=== PATIENT | female | born 1950 | race Caucasian/White ===

== ENCOUNTER 2018-07-31 11:30 | Inpatient (IN) | payer MEDICARE, OTHER ==
--- NOTE | 2018-07-13 07:29 | HP ---
HISTORY AND PHYSICAL: DATE OF ADMISSION/SURGERY: 07/31/18 SURGEON: Darlin Guerrero MD.* (DICTATED BY EDA JACKSON) PROCEDURE: Left total hip arthroplasty. DATE OF OFFICE VISIT: 07/11/18 CHIEF COMPLAINT: Left hip pain. HISTORY OF PRESENT ILLNESS: Ms. Mclean is a 67-year-old female with continued complaints of left hip pain. She has failed conservative treatment and elected to proceed with a left total hip arthroplasty. PAST MEDICAL HISTORY: Osteopenia, depression, and GERD. PAST SURGICAL HISTORY: Tonsillectomy, , hysterectomy. CURRENT MEDICATIONS: 1. Meloxicam 15 mg daily. 2. Lexapro 10 mg daily. 3. Multivitamin. 4. Omeprazole 20 mg twice a day. 5. AREDS 2. 6. sodium once a month. ALLERGIES: No known drug allergies. FAMILY HISTORY: Cancer, coronary artery disease, and stroke. SOCIAL HISTORY: She is a 67-year-old female. She lives with her . She does not smoke or use drugs. She uses occasional alcohol. REVIEW OF SYSTEMS: A complete 14-point review of systems reviewed with the patient, was positive for GERD. She denies history of DVT, PE, hepatitis, HIV, or anesthesia problems. PHYSICAL EXAMINATION GENERAL: She is well developed, well nourished, in no acute distress. VITAL SIGNS: She stands 5 feet 3 inches tall, weighs 178 pounds. Her blood pressure is 116/76, heart rate is 64. HEENT: Normocephalic, atraumatic. NECK: Supple. No palpable lymph nodes. PULMONARY: Lungs are clear to auscultation bilaterally. CARDIO: Regular rate and rhythm. Strong S1, S2. ABDOMEN: Soft, nontender, nondistended. NEUROLOGICAL: She is alert and oriented x3. MUSCULOSKELETAL: Left lower extremity, the skin is intact. There are no open wounds or abrasions. She walks with an antalgic type gait, favoring her left hip. She has decreased internal and external rotation of the left hip. She has 2+ dorsalis pedis pulses, intact sensation and her lower extremity muscle group strengths are intact at 5/5. ASSESSMENT AND PLAN: Ms. Mclean is a 67-year-old female with continued complains of left hip pain secondary to end-stage osteoarthritis. She has failed conservative treatment and elected to proceed with a left total hip arthroplasty. The surgery is scheduled for 07/31/[address] Guerrero discussed the risks and benefits of the surgery at today's visit and all of her questions were answered. She will follow up with Dr. Guerrero 2 weeks after the surgery. EDA JACKSON [id number]/[facility] #: [id number] LD
[~2018-07-31 11:30] MED LIST: Acetaminophen IV 1GM/100ML * 1,000 MG/100 ML VIAL IVPB ONE; Buffered Lidocaine 0.9% SYRIN* 5 ML/SYR SYRINGE INTRADERM ONE; Dexamethasone IV* 4 MG/ML 1 ML (4 MG) IV SLOW PU ONE; Famotidine IV* 10 MG/ML 2 ML (20 mg) IV ONE; Gabapentin CAP(*) 300 MG PO ONE; Lactated Ringers 1000 ML Bag* 1,000 ML IV SCH; celeCOXIB CAP* 200 MG PO ONE
--- OUTSIDE RECORDS SUMMARY | 2018-07-31 11:33 | XMS REPORT | Continuity of Care Document ---
:1950 External Reference #:[id number] Author Name Betsy Fleming Care Team Providers Name Role Phone Aguila Gusman MD Care Team Information Armed Custom Protection Officer Unavailable Ishan Dumont MD Primary Care Physician Unavailable Payers Type Date Identification Numbers Payment Provider Subscriber Policy Number: [id number] Medicare Kelsey Mclean PayID: [id number] [address] [place] [address] Policy Number: [id number] [facility] Kelsey Mclean Group Number: [address] PayID: [id number] [place] [address] Advance Directives Description No Information Available Problems Date Description Provider Status Onset: 03/16/2018 Localized, primary osteoarthritis of the Darlinkavya Guerrero M.D. 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 ETOH Use Drinks 3 Alcoholic Beverages Per Week Tobacco Use Start: Unknown End: Patient is a former smoker Unknown Smoking Status Reviewed: 07/13/18 Patient is a former smoker Exercise Type/Frequency Exercises regularly Allergies, Adverse Reactions, Alerts Description No Known Drug Allergies Medications Medication Date Status Form Strength Qnty SIG Indications Ordering Provider Meloxicam Active Tablets 15mg 30tabs take 1 tab M25.552 Dalrin 018 by mouth Cesar, with food M.DUziel once a day Lexapro 0 Active Tablets 10mg 1 by mouth Unknown 000 every day Multi Vitamin Active Tablets 1 by mouth Unknown Daily 000 every day Omeprazole Active 20mg bid Unknown 000 Risedronate Active Unknown Sodium 000 Preservision Active Unknown Areds 2 000 Naproxen Sodium Hx Tablets 220mg 1 tab as Unknown 000 - needed 018 Bone Pill Hx Once Unknown 000 - Monthly 018 Medications Administered in Office Medication Date Status Form Strength Qnty SIG Indications Ordering Provider Depomedrol Administered Injection Darlin 40MG 018 Nat Guerrero Immunizations Description No Information Available Vital Signs Date Vital Result Comment 07/13/2018 3:12pm Height 63 inches 5'3" Weight 177.00 lb Heart Rate 68 /min BP Systolic 132 mmHg BP Diastolic 80 mmHg Respiratory Rate 16 /min Body Temperature 98.4 F Pain Level 4 L hip/low back O2 % BldC Oximetry 98 % BMI (Body Mass Index) 31.4 kg/m2 07/11/2018 9:40am Height 63 inches 5'3" Weight 178.00 lb Heart Rate 64 /min BP Systolic 116 mmHg BP Diastolic 74 mmHg BMI (Body Mass Index) 31.5 kg/m2 06/25/2018 9:38am Height 63 inches 5'3" Weight 177.00 lb Heart Rate 80 /min BP Systolic 116 mmHg BP Diastolic 74 mmHg BMI (Body Mass Index) 31.4 kg/m2 04/13/2018 2:42pm Height 63 inches 5'3" Weight 175.00 lb BP Systolic 111 mmHg BP Diastolic 62 mmHg Respiratory Rate 16 /min Pain Level 4 BMI (Body Mass Index) 31.0 kg/m2 03/16/2018 4:33pm Height 63 inches 5'3" Weight 177.25 lb Heart Rate 65 /min BP Systolic 110 mmHg BP Diastolic 62 mmHg Respiratory Rate 16 /min Body Temperature 98.2 F Pain Level 5 BMI (Body Mass Index) 31.4 kg/m2 Results Description No Information Available Procedures Date Code Description Status 07/13/2018 40700 EKG Tracing & Interpretation Completed 03/16/2018 48722 Inj/Aspir Major JT Or Bursa W/ US Completed Encounters Type Date Location Provider Dx Diagnosis Office Visit 06/25/2018 [facility] Darlin Cesar, M25.552 Pain in left hip 9:15a [facility]. M16.12 Unilateral primary osteoarthritis, left hip Office Visit 04/13/2018 2:30p [facility] Darlin Guerrero, M25.552 Pain in left Of C.M.Ronald. Alla.D. hip M16.12 Unilateral primary osteoarthritis, left hip Office Visit 03/16/2018 10:45a [facility] Darlin Guerrero, M25.552 Pain in left Of C.M.A. M.D. hip M16.12 Unilateral primary osteoarthritis, left hip Plan of Treatment Future Appointment(s):07/31/2018 1:30 pm [facility]2018 1:30 pm - EDA Ortega at [facility].08/13/2018 2:45 pm - Dar[facility]07/31/2018 1:30 pm - Darlin Guerrero M.D. at [facility].07/13/2018 - Lenny Mata MDZ01.810 Encounter for preprocedural cardiovascular jjugpuanqouM99.31 Abnormal electrocardiogram [ECG] [EKG]M16.12 Unilateral primary osteoarthritis, left hipM25.552 Pain in left hip
--- OUTSIDE RECORDS SUMMARY | 2018-07-31 11:33 | XMS REPORT | Continuity of Care Document ---
:1950 External Reference #:[id number] Author Name Una Pereira Care Team Providers Name Role Phone Aguila Gusman MD Care Team Information Men'S Swim Coach Unavailable Ishan Dumont MD Primary Care Physician Unavailable Payers Type Date Identification Numbers Payment Provider Subscriber Policy Number: [id number] Medicare Kelsey Mclean PayID: [id number] [address] [place] [address] Policy Number: [id number] [facility] Kelsey Mclean Group Number: [id number] [address] PayID: [id number] [place] [address] Advance Directives Description No Information Available Problems Date Description Provider Status Onset: 03/16/2018 Localized, primary osteoarthritis of the Darlin Guerrero M.D. Active pelvic region and thigh Onset: 07/13/2018 Preoperative cardiovascular examination Lenny aMta MD Active Onset: 07/13/2018 Electrocardiogram abnormal Lenny [...] Tablets 15mg 30tabs take 1 tab M25.552 Darlin 018 by mouth Cesar with food M.DUziel once a day Lexapro 00/00/0 Active Tablets 10mg 1 by mouth Unknown [...] BMI (Body Mass Index) 31.4 kg/m2 Results Test Date Facility Test Result H/L Range Note Urinalysis Profile 07/19/2018 [facility] Urine Color [place] [address] [place] [address] [phone] Urine Appearance Cloudy Urine Specific Amberson 1.027 N 1.010-1.030 Urine pH 5.0 N 5-9 Urine Urobilinogen Negative Negative Urine Ketones Trace Abnormal Negative Urine Protein Negative Negative Urine Leukocytes 1+ Abnormal Negative Urine Blood Negative Negative * * Abnormal Negative 1 Urine Nitrite Negative Negative Urine Bilirubin Negative Negative Urine Glucose Negative Negative Urine White Blood Cell 2+(11-20/hpf) Abnormal Absent Urine Red Blood Cell Trace(0-2/hpf) Absent Urine Bacteria Absent Absent Urine Squamous Epithelial Cell Present Abnormal Absent Inr/Protime 07/19/2018 [facility] Inr 0.90 N 0.77-1.[address] [place] [address] [phone] Laboratory test 07/19/2018 [facility] Partial 26.7 seconds N 26.0-36.[address] [address] PTT [phone] CBC Auto Diff 07/19/2018 [facility] White Blood 5.8 10^3/uL N 3.5-10.[address] [place] [address] [phone] Red Blood Count 4.10 10^6/uL N 4.00-5.40 Hemoglobin 12.9 g/dL N 12.0-16.0 Hematocrit 39 % N 35-47 Mean Corpuscular Volume 95 fL N 80-97 Mean Corpuscular Hemoglobin 32 pg High 27-31 Mean Corpuscular HGB Conc 33 g/dL N 31-36 Red Cell Distribution Width 13 % N 10.5-15 Platelet Count 291 10^3/uL N 150-450 Mean Platelet Volume 8.8 fL N 7.4-10.4 Abs Neutrophils 2.6 10^3/uL N 1.5-7.7 Abs Lymphocytes 2.1 10^3/uL N 1.0-4.8 Abs Monocytes 0.7 10^3/uL N 0-0.8 Abs Eosinophils 0.2 10^3/uL N 0-0.6 Abs Basophils 0.1 10^3/uL N 0-0.2 Abs Nucleated RBC 0 10^3/uL Granulocyte % 44.9 % Lymphocyte % 35.9 % Monocyte % 12.8 % Eosinophil % 4.0 % Basophil % 2.4 % Nucleated Red Blood Cells % 0.1 Comp Metabolic Panel 07/19/2018 [facility] Sodium 137 mmol/L N 135-145 [address] [place] [address] [phone] Potassium 4.3 mmol/L N 3.5-5.0 Chloride 102 mmol/L N 101-111 Co2 Carbon Dioxide 28 mmol/L N 22-32 Anion Gap 7 mmol/L N 2-11 Glucose 104 mg/dL High 70-100 Blood Urea Nitrogen 13 mg/dL N 6-24 Creatinine 0.62 mg/dL N 0.51-0.95 BUN/Creatinine Ratio 21.0 High 8-20 Calcium 9.7 mg/dL N 8.6-10.3 Total Protein 6.9 g/dL N 6.4-8.9 Albumin 4.2 g/dL N 3.2-5.2 Globulin 2.7 g/dL N 2-4 Albumin/Globulin Ratio 1.6 N 1-3 Total Bilirubin 0.40 mg/dL N 0.2-1.0 Alkaline Phosphatase 101 U/L N 34-104 Alt 27 U/L N 7-52 Ast 28 U/L N 13-39 Egfr Non- 96.6 >60 Egfr 116.9 >60 2 Type & Screen 07/19/2018 [facility] Patient Blood Type O Negative [address] [place] [address] [phone] Antibody Screen NEGATIVE 1 *Ascorbic acid is present which may interfere with detection of blood. 2 Because ethnic data is not always readily available, this report includes an eGFR for both -Americans and non- Americans. The National Kidney Disease Education Program (NKDEP) does not endorse the use of the MDRD equation for patients that are not between the ages of 18 and 70, are , have extremes of body size, muscle mass, or nutritional status, or are non- or non-. According to the National Kidney Foundation, irrespective of diagnosis, the stage of the disease is based on the level of kidney function: Stage Description GFR(mL/min/1.73 m(2)) 1 Kidney damage with normal or decreased GFR 90 2 Kidney damage with mild decrease in GFR 60-89 3 Moderate decrease in GFR 30-59 4 Severe decrease in GFR 15-29 5 Kidney failure <15 (or dialysis) Procedures Date Code Description Status 07/13/2018 45091 EKG Tracing & Interpretation Completed 03/16/201852482 Inj/Aspir Major JT Or Bursa W/ US Completed Encounters Type Date Location Provider Dx Diagnosis Office Visit 07/13/2018 [facility] Lenny Mata MD Z01.810 Encounter for 2:40p [facility] preprocedural cardiovascular examination R94.31 Abnormal electrocardiogram [ECG] [EKG] M16.12 Unilateral primary osteoarthritis, left hip M25.552 Pain in left hip Office Visit 06/25/2018 9:15a [facility] Darlin Guerrero M25.552 Pain in left Of C.M.A. M.D. hip M16.12 Unilateral primary osteoarthritis, left hip Office Visit 04/13/2018 2:30p [facility] Darlin Guerrero M25.552 Pain in left Of C.M.A. M.D. hip M16.12 Unilateral primary osteoarthritis, left hip Office Visit 03/16/2018 10:45a [facility] Darlin Guerrero, M25.552 Pain in left Of C.M.A. M.D. hip M16.12 Unilateral primary osteoarthritis, left hip Plan of Treatment Future Appointment(s):07/31/2018 1:30 pm - ARI Hanna at [facility] ..A.07/31/2018 1:30 pm - EDA Ortega at [facility]08/13/2018 2:45 pm - Darlin Guerrero M.D. at [facility]07/31/2018 1:30 pm - Darlin Guerrero M.D. at [facility]07/11/2018 - Darlin Guerrero M.D.M25.552 Pain in left hipFollow up:Follow up: 2 weeks after kpdxrjpX84.12 Unilateral primary osteoarthritis, left hip
--- OUTSIDE RECORDS SUMMARY | 2018-07-31 11:33 | XMS REPORT | Continuity of Care Document ---
:1950 External Reference #:[id number] Author Name Karla Estrada PA-C Address [address] [facility] [place] [address] Care Team Providers Name Role Phone Ishan uDmont MD Care Team Information Desolderer Unavailable Ishan Dumont MD Primary Care Physician Unavailable Payers Type Date Identification Numbers Payment Provider Subscriber Policy Number: [id number] Medicare Darling Mclean PayID: [id number] [facility] [address] [place] [address] Policy Number: [id number] [facility] Darling Mclean PayID: [id number] [address] [place] [address] Advance Directives Description No Information Available Problems Date Description Provider Status Onset: 07/09/2018 Melena Karla Estrada PA-C Active Onset: 07/09/2018 Epigastric pain Karla Estrada PA-C Active Onset: 07/09/2018 Gastroesophageal reflux disease Karla Estrada PA-C Active Onset: 11/13/2014 Diarrhea Zane Rudolph MD Active Family History Date Family Member(s) Problem(s) Comments Father Throat Cancer Social History Type Date Description Comments Sex Unknown Tobacco Use Start: Unknown End: Unknown Patient is a former smoker Smoking Status Reviewed: 07/09/18 Patient is a former smoker Allergies, Adverse Reactions, Alerts Description No Known Drug Allergies Medications Medication Date Status Form Strength Qnty SIG Indications Ordering Provider Omeprazole 06/18 Active Capsules 20mg 60cap DR tracey Olmstead MD Methylprednisolone 01/11 Active TBPK 4mg 21uni yelena Olmstead MD Risedronate Sodium 12/03 Active Tablets 150mg 3tabs MD Ishan Oxycodone HCL 11/06 Active Tablets 5mg 30tab tracey Olmstead MD Estrace 04/29 Active Cream 0.1mg/GM 42.50 N95.2 Valeria 0unit GIACOMO Yanez s Lexapro 11/04 Active Tablets 10mg 90tab tracey Olmstead MD Lexapro Active Tablets 10mg Unknown /0000 Colyte-Flavor Packs 11/13 Hx Solution 240gm 4000m As 787.91 Zane Feliciano /2014 Rec Yamilet Harmon MD 11/16 Immunizations Description No Information Available Vital Signs Date Vital Result Comment 07/09/2018 10:02am Height 63 inches 5'3" Weight 180.00 lb BP Systolic 129 mmHg BP Diastolic 78 mmHg Heart Rate 80 /min BMI (Body Mass Index) 31.9 kg/m2 11/13/2014 2:07pm Height 63 inches 5'3" Weight 147.00 lb BP Systolic 132 mmHg BP Diastolic 72 mmHg Heart Rate 78 /min BMI (Body Mass Index) 26.0 kg/m2 Results Test Date Facility Test Result H/L Range Note Laboratory test 06/19/2018 N2N/CCD Import Absolute 0.05 1 0.01-0.08 finding Basophils Absolute Eos Blood 0.13 1 0.04-0.54 Absolute Lymphocytes 1.79 1 1.18-3.74 Absolute Monocytes BLD Auto 0.57 1 0.24-0.82 Absolute Neutrophils BLD 3.64 1 1.56-6.13 Basophil% 0.8 % 0-1.2 Eos % 2.1 % 0.7-7.0 Hematocrit (Fma/CMC/CTX) 38.7 % 35.0-50.0 Hemoglobin (Fma/CMC/CTX) 12.7 g/dL 12.0-17.0 Lymph% 28.9 % 20.0-52.0 Mean Corpuscular Hemo Concen 32.8 g/dL 32.2-36.0 Mean Corpuscular Hemoglobin 31.9 pg 25.6-32.2 Mean Corpuscular Vol 97.2 fL High 80-95 Mean Platelet Volume 9.4 fL 8.0-12.4 Monocytes % 9.2 % 5.0-12.0 Neutrophil % 58.7 % 34.0-70.0 Platelets 283 10^3/uL 163-400 RBC 3.98 1 3.93-6.0 RDW-CV 13.3 1 11.6-14.4 WBC 6.20 1 4.0-10.0 Comprehensive Metabolic Prof 06/19/2018 N2N/CCD Import A/G Ratio 1.5 CALC 0.6-2.3 Albumin 4.4 g/dL 3.8-5.5 Alk. Phosphatase 100 U/L 30-110 Alt (SGPT) 20 U/L 7-35 Ast (Sgot) 19 U/L 5-34 BUN 15 mg/dL 6-26 BUN/Creat Ratio 25.0 CALC 8.0-36.0 Calcium 9.3 mg/dL 8.6-10.2 Carbon Dioxide 26 mEq/L 21-32 Chloride 101 mEq/L 94-112 Creatinine 0.6 mg/dL 0.6-1.4 GFR >60 ml/min/1.73m^ >=60 GFR Non- >60 ml/min/1.73m^ >=60 Globulin 2.9 g/dL 2.0-4.8 Glucose 92 mg/dL 70-105 Potassium 3.8 mEq/L 3.6-5.5 Sodium 136 mEq/L 134-149 Total Bilirubin 0.4 mg/dL 0.2-1.3 Total Protein 7.3 g/dL 6.4-8.3 Laboratory test finding 11/06/2017 N2N/CCD Import Baso # 0.06 10^3/uL 0.01-0.08 Baso% 1.0 % 0.1-1.2 Eos # 0.1 10^3/uL 0.0-0.5 Eos% 1.9 % 0.7-7.0 HCT 41 % 35-50 HGB 13.6 g/dL 12.0-17.0 Lymph % 37.0 % 20.0-52.0 Lymph# 2.17 10^3/uL 1.18-3.74 MCH 31.3 pg 25.6-32.2 MCHC 33.0 g/dL 32.2-36.0 MCV 94.9 fL 80.0-95.0 MPV 10.1 fL 9.4-12.4 Lynn# 0.57 10^3/uL 0.24-0.82 Lynn% 9.7 % 5.0-12.0 Rigoberto# 2.94 10^3/uL 1.56-6.13 Rigoberto% 50.2 % 34.0-70.0 PLT 281 10^3/uL 163-400 RBC 4.34 10^6/uL 3.93-6.00 RDW-CV 12.7 % 11.6-14.4 TSH 1.73 mIU/L 0.50-6.00 WBC 5.9 10^3/uL 4.0-10.0 Comprehensive Metabolic Prof 11/06/2017 N2N/SonicPollen Import A/G Ratio 1.7 CALC 0.6-2.3 Albumin 4.7 g/dL 3.8-5.5 Alk. Phosphatase 104 U/L 30-110 Alt (SGPT) 26 U/L 7-35 Ast (Sgot) 24 U/L 5-34 BUN 11 mg/dL 6-26 BUN/Creat Ratio 18.3 CALC 8.0-36.0 Calcium 9.8 mg/dL 8.6-10.2 Carbon Dioxide 28 mEq/L 21-32 Chloride 99 mEq/L 94-112 Creatinine 0.6 mg/dL 0.6-1.4 GFR >60 ml/min/1.73m^ >=60 GFR Non- >60 ml/min/1.73m^ >=60 Globulin 2.8 g/dL 2.0-4.8 Glucose 110 mg/dL High 70-105 1 Potassium 4.3 mEq/L 3.6-5.5 Sodium 140 mEq/L 134-149 Total Bilirubin 0.4 mg/dL 0.2-1.3 Total Protein 7.5 g/dL 6.4-8.3 Lipid Profile 11/06/2017 N2N/SonicPollen Import Cholesterol 212 mg/dL High 120- 200 HDL Cholesterol 113 mg/dL High 30-85 2 HDL Risk Factor 1.9 CALC 0.0-4.4 LDL (Calculated) 85 CALC 0-129 Triglycerides 68 mg/dL 30-200 VLDL Cholesterol 14 mg/dL 0-50 Complete Blood Count 06/28/2016 N2N/SonicPollen Import Gran # 2.5 10^3/uL 1.5- 7.2 Gran % 48.1 % 42.2-75.2 HCT 42 % 36-50 HGB 14.5 g/dL 12.1-17.2 Lymph % 44.1 % 20.5-51.1 Lymph# 2.3 10^3/uL 0.7-4.9 MCH 33.0 pg 27.6-33.3 MCHC 34.3 g/dL 33.0-35.5 MCV 96.0 fL 82.2-97.4 MPV 6.4 fL Low 7.4-10.4 Lynn# 0.4 10^3/uL 0.1-0.9 Lynn% 7.8 % 1.7-9.3 PLT 246 10^3/uL 150-400 RBC 4.38 10^6/uL 3.90-5.70 RDW 13.5 % 11.6-13.7 WBC 5.2 10^3/uL 3.6-9.6 Comprehensive Metabolic Prof 06/28/2016 N2N/CCD Import A/G Ratio 1.4 CALC 0.6-2.3 Albumin 4.3 g/dL 3.8-5.5 Alk. Phosphatase 89 U/L 30-110 Alt (SGPT) 18 U/L 7-35 Ast (Sgot) 22 U/L 5-34 BUN 17 mg/dL 6-26 BUN/Creat Ratio 28.3 CALC 8.0-36.0 Calcium 10.0 mg/dL 8.6-10.2 Carbon Dioxide 30 mEq/L 21-32 Chloride 100 mEq/L 94-112 Creatinine 0.6 mg/dL 0.6-1.4 GFR >60 ml/min/1.73m^ >=60 GFR Non- >60 ml/min/1.73m^ >=60 Globulin 3.1 g/dL 2.0-4.8 Glucose 113 mg/dL High 70-105 Potassium 4.7 mEq/L 3.6-5.5 Sodium 139 mEq/L 134-149 Total Bilirubin 0.4 mg/dL 0.2-1.3 Total Protein 7.4 g/dL 6.4-8.3 Lipid Profile 06/28/2016 N2N/CCD Import Cholesterol 227 mg/dL High 120- 200 HDL Cholesterol 103 mg/dL High 30-85 HDL Risk Factor 2.2 CALC 0.0-4.4 LDL (Calculated) 109 CALC 0-129 Triglycerides 77 mg/dL 30-200 VLDL Cholesterol 15 mg/dL 0-50 Laboratory test finding 12/02/2014 [facility] Surgical Interface SEE RESULT BELOW 3 Order 1 consistent w/ previous results 2 consistent w/ previous results 3 SEE RESULT BELOW Name: DARLING MCLEAN : [address]: Zane Rudolph MD Acct: [id number] Unit: [id number] AGE: 64 Location: [facility] Re12/02/14 SEX: F Status: REG REF SPEC: [id number] HUNTER: 12/02/14-[address]: Zane Rudolph MD REQ: [id number] RECD: 12/02/14 STATUS: SOUT _ ORDERED: LEVEL IV FINAL DIAGNOSIS Colon, random biopsies: -- Large intestinal mucosa with no significant pathologic abnormality. CLINICAL HISTORY Diarrhea for screening colonoscopy POST-OPERATIVE DIAGNOSIS Screening colonoscopy to cecum. Diverticulosis, normal, random biopsies. GROSS DESCRIPTION The specimen is received in formalin labeled, Random Colon Biopsies, and consists of a 0.8 x 0.4 x 0.2 cm aggregate of multiple morales irregular soft tissue fragments, which is submitted entirely in one cassette. Signed (signature on file) Ankit Jacobson MD 1107 END OF REPORT * ML=Testing performed at Main Lab DEPARTMENT OF PATHOLOGY, [address] [place] [address] Ankit Jacobson M.D. Director [facility] # [id number] Procedures Date Code Description Status 12/02/2014 86525 Colonscopy+Biopsy Completed 12/03/2004 67368 Colonoscopy Completed Encounters Type Date Location Provider Dx Diagnosis Office Visit 11/13/2014 Gastroenterology Zane Rudolph, 787.91 Diarrhea 2:00p [facility] Plan of Treatment Future Appointment(s):08/17/2018 10:30 am - DAVID LeyC at Gastroenterology [facility]07/09/2018 - EDA Ley- CK21.9 Gastro-esophageal reflux disease without mfulbppzdipG48.13 Epigastric painK92.1 Melena
[2018-07-31] MEDS ORDERED: Famotidine IV* 10 MG/ML 2 ML (20 mg) ONE (11:58)
[2018-07-31] MEDS ORDERED: Dexamethasone IV* 4 MG/ML 1 ML (4 MG) ONE (11:58)
[2018-07-31] MEDS ORDERED: celeCOXIB CAP* 100 MG ONE (11:58)
[2018-07-31] MEDS ORDERED: Gabapentin CAP(*) 300 MG ONE (11:59)
[2018-07-31] MEDS ORDERED: ceFAZolin 2 GM PREMIX in ORs 2 GM/50 ML BAG IVPB ONE (11:59)
[2018-07-31] MEDS ORDERED: Acetaminophen IV 1GM/100ML * 100 ML ONE (12:01)
[2018-07-31] MEDS ORDERED: fentaNYL* 50 MCG/ML 2 ML VIAL (100 MCG VIAL) ONE ×2 (12:10→16:38)
[2018-07-31] MEDS ORDERED: KETAMINE HCL* 50 MG/ML 10 ML VIAL ONE (12:10)
[2018-07-31] MEDS ORDERED: Midazolam* 1 MG/ML 5 ML VIAL (5 MG) ONE (12:10)
[2018-07-31] MEDS ORDERED: Propofol* 10 MG/ML 20 ML BTL ONE (12:11)
[2018-07-31] MEDS ORDERED: Bupivacaine 0.5% SDV PF* 30ML VIAL ONE (12:11)
[2018-07-31] MEDS ORDERED: Ondansetron INJ* 2 MG/ML VIAL ONE (12:11)
[2018-07-31] MEDS ORDERED: ROPIVACAINE 5 MG/ML 30 ML BTL (0.5%) ONE (13:19)
[2018-07-31] MEDS ORDERED: Ropivacaine (OR use only) 2 MG/ML 10 ML ONE ×2 (13:19→13:22)
[2018-07-31] MEDS ORDERED: HYDROmorphone INJ1* 1 MG/ML SYRINGE IV PRN (14:36)
[2018-07-31] MEDS ORDERED: oxyCODONE/Acetamin 5/325 MG* TAB PO PRN ×2 (14:36→15:47)
[2018-07-31] MEDS ORDERED: fentaNYL* 50 MCG/ML 2 ML VIAL (100 MCG VIAL) IV PRN (14:36)
[2018-07-31] MEDS ORDERED: Ondansetron INJ* 2 MG/ML VIAL IV PRN ×2 (14:36→15:47)
[2018-07-31] MEDS ORDERED: DiMENhydriNATE IV* 50 MG/ML VIAL IV PUSH PRN (14:36)
[2018-07-31] MEDS ORDERED: Naloxone* 0.4 MG/ML 1 ML VIAL IV PRN (14:36)
[2018-07-31] MEDS ORDERED: diPHENhydraMINE IV* 50 MG/ML 1 ml VIAL (BENADRYL) IV PRN (15:47)
[2018-07-31] MEDS ORDERED: Polyethylene Glycol 3350* 17 GM PACKET PO PRN (15:47)
[2018-07-31] MEDS ORDERED: Magnesium Hydroxide LIQ* 30 ML UDC PO PRN (15:47)
[2018-07-31] MEDS ORDERED: Bisacodyl SUPP* 10 MG SUPP PR PRN (15:47)
[2018-07-31] MEDS ORDERED: Morphine VIAL* 4 MG/ML VIAL (1 ml vial) IV PRN (15:47)
[2018-07-31] MEDS ORDERED: Cyclobenzaprine TAB* 10 MG PO PRN (15:47)
[2018-07-31] MEDS ORDERED: Ondansetron TAB* 4 MG PO PRN (15:47)
[2018-07-31] MEDS ORDERED: oxyCODONE TAB* 5 MG TAB PO PRN (15:47)
[2018-07-31] MEDS ORDERED: Acetaminophen TAB* 325 MG PO SCH (16:00)
[2018-07-31] MEDS: Lactated Ringers 1000 ML Bag* 1,000 ML IV SCH (20:15)
[2018-07-31] MEDS: Docusate CAP* 100 MG PO SCH (20:33)
[2018-07-31] MEDS: oxyCODONE/Acetamin 5/325 MG* TAB PO PRN (20:34)
[2018-07-31] MEDS: Magnesium Hydroxide LIQ* 30 ML UDC PO SCH (20:34)
[2018-07-31] MEDS: ceFAZolin 1 GM ADVAN(*) 1 GM in NS 0.9% 50 ML* 50 ML IVPB SCH (22:01)
[2018-08-01] MEDS: Acetaminophen TAB* 325 MG PO SCH ×4 (00:10→23:40)
[2018-08-01] MEDS: traMADol TAB* 50 MG PO PRN (00:32)
[2018-08-01] MEDS: oxyCODONE/Acetamin 5/325 MG* TAB PO PRN ×4 (00:33→16:26)
[2018-08-01 05:38] LABS: Hematocrit 31 % (35-47); Hemoglobin 10.4 g/dl (12.0-16.0); Mean Platelet Volume 8.3 fL (7.4-10.4); Platelet Count 242 10^3/ul (150-450)
[2018-08-01] MEDS: ceFAZolin 1 GM ADVAN(*) 1 GM in NS 0.9% 50 ML* 50 ML IVPB SCH (05:49)
[2018-08-01 05:54] LABS: BUN/Creatinine Ratio 21.6 (8-20); Calcium 8.2 mg/dL (8.6-10.3); EGFR African American 146.4 (>60); Potassium 4.2 mmol/L (3.5-5.0)
[2018-08-01] MEDS ORDERED: ceFAZolin 1 GM ADVAN(*) 1 GM in NS 0.9% 50 ML* 50 ML IVPB SCH (06:00)
[2018-08-01] MEDS: Lactated Ringers 1000 ML Bag* 1,000 ML IV SCH (06:02)
[2018-08-01] MEDS: LUTEIN PO SCH (08:08)
[2018-08-01] MEDS: ZINC PO SCH (08:08)
[2018-08-01] MEDS: COPPER PO SCH (08:08)
[2018-08-01] MEDS: VITAMIN E PO SCH (08:08)
[2018-08-01] MEDS: ZEAXANTHIN PO SCH (08:08)
[2018-08-01] MEDS: ASCORBIC ACID PO SCH (08:08)
[2018-08-01] MEDS: Docusate CAP* 100 MG PO SCH ×2 (08:09→21:06)
[2018-08-01] MEDS: Pantoprazole TAB * 40 MG TAB PO SCH (08:09)
[2018-08-01] MEDS: Magnesium Hydroxide LIQ* 30 ML UDC PO SCH ×2 (08:09→21:13)
[2018-08-01] MEDS: Apixaban* 2.5 MG TAB PO SCH ×2 (08:09→21:06)
[2018-08-01] MEDS: Citalopram TAB* 20 MG PO SCH (08:09)
[2018-08-01] MEDS: ceFAZolin 1 GM* X 3 DOSES POST-OP Q8H (AddVan) IVPB SCH ×6 (08:17→21:09)
--- NOTE | 2018-08-01 08:33 | PN ---
Progress Note - Progress Note Date of Service: 08/01/18 SOAP: Subjective: []Patient was seen and examined at bedside. SHe is in good spirits today with no chest pain, shortness of breath, dizziness or nausea. Her left medial thigh has decreased sensation with full sensation below the knee. She has participate with PT and had no knee buckling and felt stable walking. Objective: []General: Well appearing, NAD LLE: Left hip dressing CDI, thigh is soft and nontender. DF/PF intact, DP2+, sensation intact to light touch distally throughout the foot. Sensation intact though decreased from baseline anterior mid-thigh and distal medial thigh. Sensation is entirely normal to light touch below the knee. Calves supple and nontender without erythema, edema or palpable cords Assessment: []POD [address] Guerrero 07/31/18 Plan: []WBAT PT/OT eliquis 2.5 mg po BID x 30 days post op hyponatremia stop maintenance IV fluids now that pt is tolerating PO and repeat sodium level tomorrow Pt had an iliac fascia block, anticipate area of decreased sensation will subside throughout the day Vital Signs Temp 98.5 F 08/01/18 07:37 Pulse 62 08/01/18 07:37 Resp 18 08/01/18 08:22 BP 123/68 08/01/18 07:37 Pulse Ox 99 08/01/18 08:00 Intake & Output 07/31/18 08/01/18 08/01/18 18:59 06:59 18:59 Intake Total 2300 500 973 Output Total 450 300 Balance 1850 200 973 Weight 176 lb Intake: IV Fluids 2300 973 ABX - CEFAZOLIN 57 LR 2300 916 Oral 500 Output: Elizondo 250 300 Estimated Blood Loss 200 Laboratory Last Values Hgb 10.4 g/dl (12.0-16.0) L 08/01/18 05:03 Hct 31 % (35-47) L 08/01/18 05:03 Plt Count 242 10^3/ul (150-450) 08/01/18 05:03 MPV 8.3 fL (7.4-10.4) 08/01/18 05:03 Sodium 133 mmol/L (135-145) L 08/01/18 05:03 Potassium 4.2 mmol/L (3.5-5.0) 08/01/18 05:03 Chloride 101 mmol/L (101-111) 08/01/18 05:03 Carbon Dioxide 29 mmol/L (22-32) 08/01/18 05:03 Anion Gap 3 mmol/L (2-11) 08/01/18 05:03 BUN 11 mg/dL (6-24) 08/01/18 05:03 Creatinine 0.51 mg/dL (0.51-0.95) 08/01/18 05:03 Est GFR ( Amer) 146.4 (>60) 08/01/18 05:03 Est GFR (Non-Af Amer) 121.0 (>60) 08/01/18 05:03 BUN/Creatinine Ratio 21.6 (8-20) H 08/01/18 05:03 Glucose 128 mg/dL (70-100) H 08/01/18 05:03 Calcium 8.2 mg/dL (8.6-10.3) L 08/01/18 05:03
--- NOTE | 2018-08-01 13:28 | OP ---
DATE OF OPERATION: 07/31/18 - ROOM #350 DATE OF : 54 SURGEON: Darlin Guerrero MD. CERTIFIED BREASTFEEDING EDUCATOR: EDA Hanna. Ms. Del Cid did help throughout the procedure with preparation of the leg, wound retraction, manipulation of the hip, and wound closure. ANESTHESIOLOGIST: Dr. Cantu ANESTHESIA: Spinal. PRE-OP DIAGNOSIS: Severe end-stage degenerative osteoarthritis of the left hip joint. POST-OP DIAGNOSIS: Severe end-stage degenerative osteoarthritis of the left hip joint. OPERATIVE PROCEDURE: Left total hip arthroplasty. COMPLICATIONS: None. ESTIMATED BLOOD LOSS: 250 cc. SPECIMEN: Femoral head and acetabular reaming, sent to Pathology. HARDWARE USED: This is uncemented Cardiosonic total hip arthroplasty hardware. For the cup, a 48C Tritanium cluster hole shell, a single 20 mm screw was used. For the insert, a 32C Trident X3 0-degree polyethylene insert. For the stem, an Accolade II, size 3 with 127-degree neck angle. For the head, a Biolox delta ceramic V40 femoral head 32 + 4. BRIEF HISTORY/INDICATIONS: Ms. Mclean is a 67-year-old female with years of increasingly severe left hip pain. Conservative treatment failed to relieve her pain. Radiographs showed advanced arthritis. Due to continued pain and decreased quality of life, she elected to undergo left total hip arthroplasty. Informed consent was obtained from the patient. She understood the risks of surgery included, but were not limited to bleeding, infection, damage to nearby structures, continued pain, need for further surgery, intraoperative fracture, nerve palsy, hardware failure or loosening, dislocation, leg length discrepancy , stroke, heart attack, blood clot, and . She wished to proceed. INTRAOPERATIVE FINDINGS: Intraoperatively, the patient was noted to have severe osteopenia throughout the case. She had extensive arthritis with osteophyte formation and complete loss of cartilage along the femoral head and acetabulum. DESCRIPTION OF PROCEDURE: Ms. Mclean was identified in the preanesthesia unit. Her left lower extremity was marked as the correct operative side. Informed consent was signed and placed in the chart. The patient was taken to the operating room and placed under spinal anesthesia. A Elizondo catheter was placed. The patient was placed in the right lateral decubitus position on the pegboard. All bony prominences were well padded. Left lower extremity was prepped and draped in the usual sterile fashion. Preop time-out was made to correctly identify the patient, side, and site. Appropriate perioperative antibiotics were given within 1 hour of incision. A standard 10 cm posterior hip incision was made with a 10 blade and carried down to the lateral fascial layer. The lateral fascial layer was incised in line with the skin incision. Charnley retractor was placed. The piriformis and conjoint tendons were elevated off the posterolateral femur. A #5 Ethibond was used to tag these tendons. Next, electrocautery was used to make a standard posterolateral capsular flap. The capsular flap was tagged with #5 Ethibond. The hip was carefully dislocated. Lesser troch to center of the femoral head measured 52 mm. The oscillating saw was used to make the appropriate femoral neck cut. Femoral head was carefully removed. The femur was retracted anteriorly. After appropriate placement of retractors, the acetabulum was well visualized. A long handled knife was used to sharply remove any remaining labrum from the acetabular rim. There was complete loss of cartilage along the acetabulum with significant osteophyte formation. The acetabulum was sequentially reamed up to a size 57. Significant osteopenia was noted. A 47 reamer obtained a bleeding subchondral bone bed. The 47 trial had good fit. Final implant chosen was a Tritanium cluster hole shell 48C. This was impacted into the acetabulum. There was satisfactory stability with appropriate anteversion and abduction angle. A single 20 mm screw was placed in the superoposterior quadrant for extra stability. Trident X3 0-degree 32C liner was chosen. This was impacted into the acetabulum without difficulty. Stability of the liner was checked and rechecked and noted to be stable. Next, attention was turned to preparation of the femoral canal. A canal finder was used to enter the proximal femur. Proximal femur was sequentially broached up to a size 3. A size 3 broach had good fit with appropriate anteversion. A 127 neck trial and a 32 +0 head trial was chosen. The hip was reduced and taken through range of motion. The hip was stable in all positions. Soft tissue tension and leg lengths were deemed to be appropriate. All trials were removed. Final implant chosen was an Accolade II, size 3 with a 127-degree neck angle. This was impacted into the femoral canal without difficulty. The stem was stable with appropriate anteversion. A 32 + 4 head trial was chosen. Lesser troch to center of the femoral head measured 53 mm. Therefore, final implant chosen was a Biolox delta ceramic V40 femoral head 32 + 4. This was impacted on to the femoral neck. The hip was reduced and taken through a range of motion. The hip was stable in all positions with good soft tissue tension and appropriate leg lengths. The hip was copiously irrigated with sterile saline. The capsule and tendons were reapproximated to the posterolateral femur through 2 trochanteric drill holes. The hip was copiously irrigated with sterile saline. Lateral fascial layer was closed using interrupted #1 Vicryls. The rest of the incision was closed in a layered fashion using 0 and 2-0 Vicryls. Skin was closed using running 3-0 Monocryl and Dermabond. Sterile Adaptic, 4x4s, and paper tape were used to cover the incision. The patient's anesthesia was reversed without difficulty. She was taken to the PACU in stable condition. Intended weightbearing will be weightbearing as tolerated. Intended DVT prophylaxis will be Coumadin with the Lovenox bridge. [id number]/[facility] #: [id number] [facility]PITALMalcom
[2018-08-02] MEDS: traMADol TAB* 50 MG PO PRN (04:25)
[2018-08-02] MEDS: oxyCODONE/Acetamin 5/325 MG* TAB PO PRN (04:26)
[2018-08-02 05:32] LABS: Hematocrit 27 % (35-47); Hemoglobin 9.1 g/dl (12.0-16.0); Mean Platelet Volume 8.5 fL (7.4-10.4); Platelet Count 200 10^3/ul (150-450)
[2018-08-02] MEDS: COPPER PO SCH (09:08)
[2018-08-02] MEDS: ZEAXANTHIN PO SCH (09:08)
[2018-08-02] MEDS: ZINC PO SCH (09:08)
[2018-08-02] MEDS: Docusate CAP* 100 MG PO SCH (09:08)
[2018-08-02] MEDS: ASCORBIC ACID PO SCH (09:08)
[2018-08-02] MEDS: Magnesium Hydroxide LIQ* 30 ML UDC PO SCH (09:08)
[2018-08-02] MEDS: VITAMIN E PO SCH (09:08)
[2018-08-02] MEDS: LUTEIN PO SCH (09:08)
[2018-08-02] MEDS: Citalopram TAB* 20 MG PO SCH (09:14)
[2018-08-02] MEDS: Acetaminophen TAB* 325 MG PO SCH (09:14)
[2018-08-02] MEDS: Apixaban* 2.5 MG TAB PO SCH (09:15)
[2018-08-02] MEDS: Pantoprazole TAB * 40 MG TAB PO SCH (09:15)
--- NOTE | 2018-08-02 09:49 | PN ---
Progress Note - Progress Note Date of Service: 08/02/18 SOAP: Subjective: []Patient was seen and examined at bedside. She feels well and desires DC home. Denies CP, SOB, dizziness, nausea. Numbness of L thigh has entirely resolved. Objective: []General: Well appearing, NAD LLE: Left hip dressing changed, incision CDI. Thigh is soft and nontender, DF/ PF intact, DP2+, Sensation intact to light touch Calves supple and nontender without erythema, edema or palpable cords Assessment: []POD [address] Guerrero 07/31/18 Plan: []WBAT PT/OT eliquis 2.5 mg po BID x 30 days post op DC home today Vital Signs Temp 97.4 F 08/02/18 07:06 Pulse 72 08/02/18 07:06 Resp 18 08/02/18 07:40 BP 119/67 08/02/18 07:06 Pulse Ox 95 08/02/18 07:40 Intake & Output 08/01/18 08/02/18 08/02/18 18:59 06:59 18:59 Intake Total 2489 980 370 Output Total 700 750 0 Balance 1789 230 370 Intake: IV Fluids 1959 ABX - CEFAZOLIN 57 LR 1902 IVPB 110 ABX - CEFAZOLIN 110 Oral 420 980 370 Output: Urine 700 750 0 Other: Date of Last Bowel 08/02/18 Movement # Bowel Movements 1 1 Estimated Stool Amount Large Small Laboratory Last Values Hgb 9.1 g/dl (12.0-16.0) L 08/02/18 05:13 Hct 27 % (35-47) L 08/02/18 05:13 Plt Count 200 10^3/ul (150-450) 08/02/18 05:13 MPV 8.5 fL (7.4-10.4) 08/02/18 05:13 Sodium 137 mmol/L (135-145) 08/02/18 05:13 Potassium 4.2 mmol/L (3.5-5.0) 08/01/18 05:03 Chloride 101 mmol/L (101-111) 08/01/18 05:03 Carbon Dioxide 29 mmol/L (22-32) 08/01/18 05:03 Anion Gap 3 mmol/L (2-11) 08/01/18 05:03 BUN 11 mg/dL (6-24) 08/01/18 05:03 Creatinine 0.51 mg/dL (0.51-0.95) 08/01/18 05:03 Est GFR ( Amer) 146.4 (>60) 08/01/18 05:03 Est GFR (Non-Af Amer) 121.0 (>60) 08/01/18 05:03 BUN/Creatinine Ratio 21.6 (8-20) H 08/01/18 05:03 Glucose 128 mg/dL (70-100) H 08/01/18 05:03 Calcium 8.2 mg/dL (8.6-10.3) L 08/01/18 05:03
[2018-08-02 12:15] VITALS: BP 111/57
--- NOTE | 2018-08-02 18:50 | DS ---
DISCHARGE SUMMARY: DATE OF ADMISSION: 07/31/18 DATE OF DISCHARGE: 08/02/18 PROVIDER: Dr. Darlin uGerrero.* (DICTATED BY EDA SMITH) PREOPERATIVE DIAGNOSIS: Severe end-stage degenerative osteoarthritis of the left hip joint. OPERATIVE PROCEDURE: Left hip total arthroplasty. HISTORY: Ms. Mclean is a 67-year-old female with years of increasingly severe left hip pain. She failed conservative management and elected to undergo a left total hip arthroplasty. HOSPITAL COURSE: The patient was admitted to [facility] on . She underwent a left total hip arthroplasty without complication. She recovered briefly in PACU and was transferred to short-way surgical unit in sable condition. Postop day 1, she was well appearing in no acute distress. Left hip dressing clean, dry, and intact. Thigh was soft and nontender. Dorsiflexion and plantar flexion intact. DP pulse 2+. Sensation is intact to light touch distally throughout. Sensation intact though decreased from baseline, anterior mid thigh and distal medial thigh. Sensation is entirely normal to light touch below the knee. Calf supple, nontender without erythema, edema, or palpable cords. Postop day 2, she was well appearing in no acute distress. The sensation is entirely back to normal of a left thigh. Dressing was changed. Incision clean, dry, and intact. Vital Signs: Temperature 97.4, pulse 72, respiratory rate 18, blood pressure 119/67, pulse ox 95, hemoglobin 9.1, hematocrit 27. The patient was deemed medically and orthopedically stable for discharge home. She has met her goals of physical therapy. DISCHARGE MEDICATIONS: Include: 1. Lexapro 10 mg p.o. q.a.m. 2. Multivitamin 1 tab p.o. q.a.m. 3. Omeprazole 20 mg p.o. q.a.m. 4. Meloxicam was discontinued at home. 5. Risedronate sodium 150 mg p.o. monthly. 6. PreserVision 1 tab each p.o. q.a.m. 7. Discontinue oxycodone. 8. Acetaminophen 975 mg p.o. q.8 hours p.r.n., not to exceed 4000 mg from all sources in a day. 9. Eliquis 2.5 mg p.o. b.i.d. for 30 days. 10. Docusate 100 mg p.o. b.i.d. p.r.n. 11. Percocet 5/325 one tab every 4 to 6 hours as needed for pain, max daily dose of 10. DISCHARGE INSTRUCTIONS: The patient will be weightbearing as tolerated. She will follow hip precaution. Okay to shower postop day 3. Pain control Percocet 5/325 one to two tabs by mouth every 4 to 6 hours as needed for pain, max of 10 tabs per day. DVT prophylaxis with Eliquis 2.5 mg every 12 hours for [address] Guerrero in 10 to 14 days. She is discharged to home. EDA SMITH [id number]/[facility] #: [id number] MTDD
== END 2018-08-02 13:00 | disposition home or self-care (01) | DRG 470 ==
LOC: AA 11:30 → SSU 15:47
PROVIDERS: ADMIT Orthopaedic Surgery Adult Reconstructive Orthopaedic Surgery; ATTEND Orthopaedic Surgery Adult Reconstructive Orthopaedic Surgery
PROC: 0SRB04A Replacement of Left Hip Joint with Ceramic on Polyethylene Synthetic Substitute, Uncemented, Open Approach (ICD-10-PCS; principal; 2018-07-31 14:00)
DX: M16.12 Unilateral primary osteoarthritis, left hip (principal); E87.1 Hypo-osmolality and hyponatremia; F32.9 Major depressive disorder, single episode, unspecified; M85.88 Other specified disorders of bone density and structure, other site; M25.752 Osteophyte, left hip; K21.9 Gastro-esophageal reflux disease without esophagitis; E66.9 Obesity, unspecified; Z90.710 Acquired absence of both cervix and uterus; I44.39 Other atrioventricular block; Z82.49 Family history of ischemic heart disease and other diseases of the circulatory system; Z82.3 Family history of stroke; Z72.89 Other problems related to lifestyle; Z68.31 Body mass index [BMI] 31.0-31.9, adult; Z87.891 Personal history of nicotine dependence
CPT/HCPCS: 36415; 72170; 80048; 84300; 85014; 85018; 85049; 88304; 88311; A9270-GY; C1713; C1776; G8978-GP-CJ; G8979-GP-CI; G8987-GO-CJ; G8988-GO-CJ; G8989-GO-CJ; J0690; J1100; J2250; J2405; J2704; J2795; J3010

== ENCOUNTER 2019-01-29 16:45 | Inpatient (IN) | payer MEDICARE, OTHER ==
--- NOTE | 2019-03-18 11:47 | HP ---
AMENDED REPORT NOW INCLUDES DESIGNATED COSIGNER * ESIGNED BEFORE ADJUSTMENTS HISTORY AND PHYSICAL: DATE OF ADMISSION/SURGERY: 03/28/19 DATE OF OFFICE VISIT: 03/15/19 SURGEON: Darlin Guerrero MD * (DICTATED BY EDA DUVAL) PROCEDURE: Right total hip replacement. CHIEF COMPLAINT: Left hip pain. HISTORY OF PRESENT ILLNESS: Ms. Mclean is a 68-year-old female with 1 year of increasing severe right hip pain. Over the last 6 months, this has become quite severe. She has had a successful left total hip arthroplasty in July 2018. Since that surgery, she has had 6/10 pain in the right groin. Her pain is increased with walking more than a block and walking on uneven ground. She has tried use of cane, physical therapy, naproxen, oxycodone, as well as the right hip intraarticular injection without pain relief. At this point, she has failed conservative treatment and is a candidate for right total hip arthroplasty. PAST MEDICAL HISTORY: 1. Arthritis. 2. Depression. 3. GERD. PAST SURGICAL HISTORY: 1. Tonsillectomy. 2. Cyst removal. 3. . 4. Hysterectomy. 5. Left total hip arthroplasty [place] [address] Guerrero. MEDICATIONS: 1. Lexapro 10 mg 1 p.o. daily. 2. Multivitamin daily. 3. Omeprazole 20 mg b.i.d. p.r.n. 4. Risedronate sodium 150 mg p.o. once monthly. 5. PreserVision AREDS 2. ALLERGIES: No known drug allergies. FAMILY HISTORY: Positive for esophageal cancer and coronary artery disease. SOCIAL HISTORY: She is a retired teacher. She lives at home with her spouse. She denies any tobacco or recreational drug use. She drinks 3 alcoholic beverages per day. She is active with walking and swimming. She is right-hand dominant. REVIEW OF SYSTEMS: General: Negative for fevers, chills, night sweats, unexplained weight loss or gain. No known anesthesia problems. HEENT: Negative for headache, lightheadedness, syncopal episodes, or visual changes. Integumentary: Negative for abrasions, lesions, or open wounds. Cardiothoracic : Negative for hypertension, chest pain, palpitations, or edema. Respiratory: Negative for shortness of breath with exertion, chronic cough, or wheezing. GI : Negative for nausea, vomiting, diarrhea, constipation or GERD symptoms. : Positive for urgency, positive for history of UTI in December 2018. Negative for nocturia, urinary frequency, or kidney problems. Musculoskeletal: Positive for right hip pain and intermittent back pain and positive for history of left tibial plateau fracture. Neurologic: Negative for paresthesias, numbness, history of seizure, stroke, or poor balance. Negative of anxiety or depression. Endocrine: Negative for diabetes or thyroid issues. Hematologic: Positive for easy bruising. Negative for anemia, bleeding disorders, or history of DVT or PE. ID: Negative for history of MRSA infection, hep C, or HIV. PHYSICAL EXAMINATION GENERAL: Well-developed, well-nourished 68-year-old female, in no acute distress. Appropriate mood and affect. Appropriate dress and hygiene. Well- coordinated bilateral upper and lower extremities. VITAL SIGNS: Height 63 inches, weight 169 pounds. Pulse 72, BP 138/78, temperature 98.8, pain level 2, BMI 30. HEENT: Normocephalic, atraumatic. PERRLA. Extraocular movements intact. Throat is clear. NECK: Supple. No palpable lymph nodes. PULMONARY: Lungs are clear to auscultation bilaterally. No wheezes, rales, or rhonchi. CARDIO: Regular rate and rhythm. S1 and S2 normal. No murmurs, rubs, or gallops. No edema. ABDOMEN: Positive bowel sounds, soft, and nontender. NEUROLOGIC: A and O x3. Cranial nerves II through XII intact. Sensation is intact to light touch. MUSCULOSKELETAL: Right lower extremity: Skin is intact with no abrasions or open wounds. There is no soft tissue swelling, erythema, or bruising. No palpable masses or lymph nodes. No tenderness around the hip. Hip flexion is to 90 degrees with groin pain, 0 degrees of internal rotation and 20 degrees of external rotation with groin pain. Flexion and abduction of the hip are active. 4+/5 due to pain. Sensation is intact to light touch distally. She is able to dorsiflex and plantarflex her ankle with 5/5 strength. DP pulse is 2 +. DIAGNOSTIC STUDIES: Radiographs of the right hip are reviewed and showed advanced arthritis with medial kwlh-gi-wkey contact. There is joint space narrowing, osteophyte formation and subchondral sclerosis. IMPRESSION: Right hip arthritis. PLAN: The patient is scheduled to undergo a right total hip replacement on 12/[address] Guerrero discussed the procedure as well as the risks and benefits with the patient. She elects to proceed. She will return to the office in 10 to 14 days postop for followup and suture removal. Prescription for Percocet will be used for postoperative pain management following discharge from the hospital. EDA DUVAL [id number]/[facility] #: [id number] MTDD
[2019-03-27] MEDS ORDERED: Buffered Lidocaine 1% SYRIN* 1 ML/SYRINGE INTRADERM ONE (09:51)
[2019-03-28] MEDS ORDERED: Tranexamic Acid 1,000 MG in NS 0.9% 50 ML* (outpatient use) IV SCH ×2
[2019-03-28] MEDS ORDERED: Lactated Ringers 1000 ML Bag* 1,000 ML IV SCH (06:00)
[2019-03-28] MEDS ORDERED: Famotidine IV* 10 MG/ML 2 ML (20 mg) IV ONE (06:00)
[2019-03-28] MEDS ORDERED: Midazolam* 1 MG/ML 5 ML VIAL (5 MG) ONE (10:42)
[2019-03-28] MEDS ORDERED: fentaNYL* 50 MCG/ML 2 ML VIAL (100 MCG VIAL) ONE (10:42)
[2019-03-28] MEDS ORDERED: ceFAZolin 2 GM in NS PREMIX(*) 2 GM/100 ML BAG IVPB ONE (11:07)
[2019-03-28] MEDS ORDERED: Famotidine IV* 10 MG/ML 2 ML (20 mg) ONE (11:07)
[2019-03-28] MEDS ORDERED: Buffered Lidocaine 1% SYRIN* 1 ML/SYRINGE INTRADERM ONE (11:07)
--- OUTSIDE RECORDS SUMMARY | 2019-03-28 11:17 | XMS REPORT | Continuity of Care Document ---
:1950 External Reference #:[id number] Author Name Darlin Guerrero M.D. (transmitted by agent of provider Rosalba Laughlin) Address [address] [place] [id number] Care Team Providers Name Role Phone Ishan Dumont MD - Family Medicine Care Team Information Lieutenant Ballistics Lenny Mata MD - Hospitalist Care Team Information Lieutenant Ballistics [phone] Problems Active Problems Provider Date Localized, primary osteoarthritis of the pelvic Darlin Guerrero M.D. Onset: region and thigh Localized, primary osteoarthritis Darlin Guerrero M.D. Onset: 10/31/2018 Preoperative cardiovascular examination Lenny Mata MD Onset: 07/13/2018 Electrocardiogram abnormal Lenny Mata MD Onset: 07/13/2018 Arthralgia of the pelvic region and thigh Lenny Mata MD Onset: 07/13/2018 Social History Type Date Description Comments Sex Unknown ETOH Use Drinks 3 Alcoholic Beverages Per Week Tobacco Use Start: Unknown End: Patient is a former smoker Unknown Smoking Status Reviewed: 03/15/19 Patient is a former smoker Exercise Type/Frequency Exercises regularly Allergies, Adverse Reactions, Alerts Description No Known Drug Allergies Medications Active Medications SIG Qnty Indications Ordering Provider Date Doxycycline Hyclate take one tab 42tabs Darlin Guerrero, 01/17/2019 100mg twice a day for M.D. Tablets 21 days Amoxicillin by mouth tid x 60tabs Darlin Guerrero, 01/15/2019 500mg Tablets 20 days M.D. Bactrim DS take 1 by mouth 6tabs Darlin Guerrero, 01/04/2019 800-160mg twice a day for M.D. Tablets 3 days Lexapro 1 by mouth every Unknown 10mg Tablets day Multi Vitamin Daily 1 by mouth every Unknown day Tablets Omeprazole bid Unknown 20mg Risedronate Sodium 150mg once Unknown monthly Preservision Areds 2 Unknown Medications Administered in Office Medication SIG Qnty Indications Ordering Provider Date Depomedrol 40MG Darlin Guerrero M.D. 10/31/2018 Injection Depomedrol 40MG Darlin Guerrero M.D. 10/31/2018 Injection Depomedrol 40MG Darlin Guerrero M.D. 03/16/2018 Injection Immunizations Description No Information Available Vital Signs Date Vital Result Comment 03/15/2019 1:11pm Height 63 inches 5'3" Weight 169.25 lb Heart Rate 72 /min BP Systolic 138 mmHg BP Diastolic 78 mmHg Body Temperature 98.8 F Pain Level 2 BMI (Body Mass Index) 30.0 kg/m2 01/02/2019 11:43am Height 63 inches 5'3" Weight 169.00 lb Heart Rate 76 /min BP Systolic 118 mmHg BP Diastolic 74 mmHg BMI (Body Mass Index) 29.9 kg/m2 Results Test Date Facility Test Result H/L Range Note Inr/Protime 01/02/2019 [facility] Inr 0.95 Normal 0.82-1.09 1 , [address] [place], [place] [id number] [phone] Laboratory test 01/02/2019 [facility] Partial 30.3 seconds Normal 26.0-38.0 3 finding [facility] [place] [address] PTT [phone] Urinalysis 01/02/2019 [facility] [place] [address] [phone] Urine Appearance Clear Urine Specific [place] 1.023 Normal 1.010-1.030 Urine pH 6.0 Normal 5-9 Urine Urobilinogen Negative Negative Urine Ketones Trace Abnormal Negative Urine Protein Negative Negative Urine Leukocytes Negative Negative Urine Blood Negative Negative * * Abnormal Negative 4 Urine Nitrite Negative Negative Urine Bilirubin Negative Negative Urine Glucose Negative Negative Type & Screen 01/02/2019 [facility] Patient Blood Type O Negative [address] [place] [address] [phone] Antibody Screen NEGATIVE Urine Culture And 01/02/2019 [facility] Urine Culture SEE RESULT [address] [place], [place] [id number] [phone] 1 AA 01/15 2 Standard intensity warfarin therapeutic range: 2.0-3.0 High intensity warfarin therapeutic range: 2.5-3.5 3 AA 01/15 4 *Ascorbic acid is present which may interfere with detection of blood. 5 SEE RESULT BELOW Name: DARLING MCLEAN : [address]: Darlin Guerrero MD Acct: [id number] Unit: [id number] AGE: 68 Location: [facility] Re01/02/19 SEX: F Status: REG REF SPEC: [id number] HUNTER: 01/02/19-[address] [facility] [address]: Darlin Guerrero MD REQ: [id number] RECD: 01/02/191548 STATUS: EDWARD WEISS DR: Ishan Dumont MD _ SOURCE: URINE SPDESC: ORDERED: Urine Culture COMMENTS: 01/15 QUERIES: Urine Source: Clean Catch Procedure Result Reported Site Urine Culture Final 01/04/19- 825 ML Organism 1 ESBL ESCHERICHIA COLI [place] Count >100,000 (Many) CFU/ML Organism 2 NORMAL SAFIA [place] Count 50-75,000 (Many) CFU/ML This isolate is an Extended Spectrum Beta-Lactamase Tunneling Machine Operator (ESBL) strain, and as such is considered resistant for all penicillins, cephalosporins and aztreonam. 1. ESBL ESCHERICHIA COLI M.I.C. RX --------- ------ Ampicillin >=32 R Cefazolin >=64 R Cefepime R Ceftriaxone >=64 R Ciprofloxacin <=0.25 S Gentamicin >=16 R Levofloxacin 0.5 S Meropenem <=0.25 S Nitrofurantoin <=16 S Tetracycline >=16 R Pipercillin/Tazobactam <=4 S Trimethoprim/Sulfamethoxazole <=20 S Amoxicillin/Clavulanic Acid 16 I Aztreonam R CONTINUED ON NEXT PAGE DEPARTMENT OF PATHOLOGY, [address] [place] [address] Ankit Jacobson M.D. Director [facility] # [id number] Patient: DARLING MCLEAN [id number] (Continued) Specimen: [id number] Collected: 01/02/19-1499 Received: 01/02/19 (Continued) Procedure Result Reported Site Urine Culture Final (continued) Contact the Microbiology Department for any additional antibiotic reporting. * ML - Main Lab . END OF REPORT DEPARTMENT OF PATHOLOGY, [address] [place] [address] Ankit Jacobson M.D. Director [facility] # [id number] Procedures Date Code Description Status 10/31/2018 Inj/Aspir Major JT Or Bursa W/ US Completed 10/31/2018 Inject/Drain Joint/Bursa Major W/O US Completed Medical Devices Description No Information Available Encounters Type Date Location Provider Dx Diagnosis Office Visit 11/26/2018 [facility] Darlin Cesar, M25.551 Pain in right hip 3:[facility] M16.11 Unilateral primary osteoarthritis, right hip M25.562 Pain in left knee M25.462 Effusion, left knee M17.12 Unilateral primary osteoarthritis, left knee Assessments Date Code Description Provider 03/15/2019 M16.11 Unilateral primary osteoarthritis, right hip Darlinciara Guerrero M.D. 03/15/2019 M25.551 Pain in right hip Darlin Guerrero M.D. 01/02/2019 M25.551 Pain in right hip Darlinciara Guerrero M.D. 01/02/2019 M16.11 Unilateral primary osteoarthritis, right hip Darlin Guerrero M.D. 11/26/2018 M25.551 Pain in right hip DarlinAlla Shields.Jodie 11/26/2018 M16.11 Unilateral primary osteoarthritis, right hip Darlin Guerrero M.D. 11/26/2018 M25.562 Pain in left knee Alla Adams.Jodie 11/26/2018 M25.462 Effusion, left knee Darlin Guerrero M.D. 11/26/2018 M17.12 Unilateral primary osteoarthritis, left knee Darlin Guerrero M.D. 10/31/2018 M25.551 Pain in right hip DarlinAlla Shields.DUziel 10/31/2018 M16.11 Unilateral primary osteoarthritis, right hip DarlinAlla Shields.DUziel 10/31/2018 M25.562 Pain in left knee DarlinAlla Shields.DUziel 10/31/2018 M25.462 Effusion, left knee Darlin Guerrero M.D. 10/31/2018 M17.12 Unilateral primary osteoarthritis, left knee Darlinciara Guerrero M.D. 09/17/2018 M25.551 Pain in right hip Alla Adams.Jodie 09/17/2018 M25.552 Pain in left hip Darlin Guerrero M.D. 09/17/2018 Z47.1 Aftercare following joint replacement surgery Darlin Guerrero M.D. 09/17/2018 Z96.642 Presence of left artificial hip joint Darlin Guerrero M.D. 09/17/2018 M16.11 Unilateral primary osteoarthritis, right hip Darlin Guerrero M.D. Plan of Treatment Future Appointment(s):04/08/2019 1:45 pm - Darlin Guerrero M.D. at [facility]03/28/2019 2:15 pm - Darlin Guerrero M.D. at [facility]03/15/2019 - Darlin Guerrero M.D.M16.11 Unilateral primary osteoarthritis, right hipFollow up:Follow up: 10-14 post opM25.551 Pain in right hip Functional Status Description No Information Available Mental Status Description No Information Available Referrals Description No Information Available
--- OUTSIDE RECORDS SUMMARY | 2019-03-28 11:17 | XMS REPORT | Continuity of Care Document ---
:1950 External Reference #:[id number] Author Name Ishan Dumont M.D. Address [address] [place] [address] Care Team Providers Name Role Phone Melchor Webb - Orthopaedic Surgery Care Team Information [employer] Ishan Dumont MD - Family Medicine Care Team Information [employer] Operator [phone] [facility] [place] - Diagnostic Care Team Information [employer] Radiology Karla Estrada-C - Care Team Information [employer] [phone] Gastroenterology Problems Active Problems Provider Date Low back pain Ishan Dumont M.D. Onset: 11/06/2017 Depressive disorder Ishan Dumont M.D. Onset: 11/06/2017 History of malignant neoplasm of skin Ishan Dumont M.D. Onset: 2017 Atrophic vaginitis Ishan Dumont M.D. Onset: 11/06/2017 Arthralgia of the pelvic region and thigh Ishan Dumont M.D. Onset: 01/01 Inactive Problems Hemorrhage of rectum and anus Ishan Dumont M.D. Onset: 01/01/2019 Inactive: 03/19/2019 Lyme disease Ishan Dumont M.D. Onset: 01/18/2019 Inactive: 03/19/2019 Degenerative joint disease involving Ishan Dumont M.D. Onset: 03/19/2019 multiple joints Inactive: 03/19/2019 Social History Type Date Description Comments Sex Unknown Tobacco Use Start: Unknown End: Unknown Former Cigarette Smoker ETOH Use Rarely consumes alcohol Tobacco Use Start: Unknown End: Unknown Patient is a former smoker Allergies, Adverse Reactions, Alerts Description No Known Drug Allergies Medications Active Medications SIG Qnty Indications Ordering Provider Date Ranitidine HCL take 1 tablet by 180tabs Ishan Dumont, 03/19/2019 150mg mouth qd - bid M.D. Tablets Risedronate Sodium take 1 tablet by 3tabs Ishan Dumont, 12/03/2017 mouth every M.D. 150mg Tablets month Oxycodone HCL 1 by mouth every 30tabs Ishan Dumont, 11/06/2017 5mg 4 hours as M.D. Tablets needed Lexapro 1 by mouth every 90tabs Ishan Dumont, 11/04/2004 10mg Tablets day M.D. Medications Administered in Office Medication SIG Qnty Indications Ordering Provider Date Injection Subcutaneous Or Unknown 12/11/2017 Intramuscular Injection TB Intradermal Test Ishan Dumont M.D. 08/04/2009 Injection Injection Subcutaneous Or Ishan Dumont M.D. 01/18/2005 Intramuscular Injection Injection Subcutaneous Or Ishan Dumont M.D. 10/05/2004 Intramuscular Injection Injection Subcutaneous Or Ishan Dumont M.D. 06/22/2004 Intramuscular Injection Injection Subcutaneous Or TARIK Carey 03/15/2004 Intramuscular Injection Injection Subcutaneous Or Ishan Dumont M.D. 06/13/2003 Intramuscular Injection Injection Subcutaneous Or Nurse Nurse 06/13/2003 Intramuscular Injection Immunizations CPT Code Status Date Vaccine Lot # [id number] Given 03/19/2019 Pneumococcal Immunization [id number] 33909 Given 06/02/2018 Zoster (Shingles) Vaccine (HZV), Recombinant, Subunit, Adjuvanted 05691 Given 05/07/2018 High-Dose, Influenza Virus Vacccine-fluzone 65 and older 60881 Given 11/06/2017 Pneumococcal Conjugate Vacc-13 [id number] 14606 Given 06/28/2016 Influenza Vac, Quadrivalent, Slit Virus, Im [id number] 05118 Given 04/29/2015 Influenza Vac, Quadrivalent, Slit Virus, Im [id number] 79088 Given 08/05/2014 Influenza Vac, Quadrivalent, Slit Virus, Im [id number] 09430 Given 07/19/2013 Zostivax [id number] 13127 Given 02/22/2011 Tdap Tetanus, W Pertussis [id number] 47234 Given 08/04/2009 H1N1 Virus Vaccine [id number] 07375 Given 08/04/2009 DO Not Use Split Influenza Virus Vaccine [id number] 41034 Given 08/04/2009 Hep A Adlt Immunization [id number] 35363 Given 08/04/2009 H1N1 Immunization Intramuscular/Intranasal W Counseling 16136 Given 01/01/2001 Td Immunization, For Use In Individuals 7 Years Or Older 32053 Given 01/01/2001 DT Immunization 38866 Given 10/03/1997 Hepatitis A Immunization - Adult Vital Signs Date Vital Result Comment 03/19/2019 4:02pm BP Systolic 130 mmHg BP Diastolic 78 mmHg Heart Rate 70 /min Body Temperature 97.6 F Respiratory Rate 20 /min Height 63 inches 5'3" Weight 171.00 lb BMI (Body Mass Index) 30.3 kg/m2 01/18/2019 4:17pm BP Systolic 108 mmHg BP Diastolic 64 mmHg Heart Rate 76 /min Body Temperature 97.9 F Respiratory Rate 16 /min Height 63 inches 5'3" Results Test Date Facility Test Result H/L Range Note Laboratory test 03/19/2019 [facility] Medicine Urine Culture <pending> finding (607)- - (a[place] Ict Hemoccult 01/10/2019 [facility] Ict Hemoccult 01/02/19 Neg. ([facility]) (607)- - (1) Ict Hemoccult-(2) 01/03/19 Neg. Ict-Hemoccult (3) 01/04/19 Neg. Inr/Protime 01/02/2019 [facility] Inr 0.95 Normal 0.82-1.09 1, 2 Laboratory test 01/02/2019 [facility] Partial Thrombo 30.3 seconds Normal 26.0- 38.0 3 finding Time PTT Urinalysis Profile 01/02/2019 [facility] Urine Color Yellow Urine Appearance Clear Urine Specific Lee 1.023 Normal 1.010-1.030 Urine pH 6.0 Normal 5-9 Urine Urobilinogen Negative Negative Urine Ketones Trace Abnormal Negative Urine Protein Negative Negative Urine Leukocytes Negative Negative Urine Blood Negative Negative * * Abnormal Negative 4 Urine Nitrite Negative Negative Urine Bilirubin Negative Negative Urine Glucose Negative Negative Type & Screen 01/02/2019 [facility] Patient Blood Type O Negative Antibody Screen NEGATIVE Urine Culture And 01/02/2019 [facility] [place]rine Culture SEE RESULT 5 Sensitivities BELOW Comprehensive 01/01/2019 [facility](fma) Sodium 138 mEq/L 134-149 Metabolic Prof Potassium 4.5 mEq/L 3.6-5.5 Chloride 97 mEq/L 94-112 Carbon Dioxide 26 mEq/L 21-32 Glucose 98 mg/dL 70-105 BUN 15 mg/dL 6-26 Creatinine 0.6 mg/dL 0.6-1.4 BUN/Creat Ratio 25.0 CALC 8.0-36.0 Calcium 9.7 mg/dL 8.6-10.2 Total Protein 7.5 g/dL 6.4-8.3 Albumin 4.6 g/dL 3.8-5.5 Globulin 2.9 g/dL 2.0-4.8 A/G Ratio 1.6 CALC 0.6-2.3 Alk. Phosphatase 110 U/L 30-110 Alt (SGPT) 20 U/L 7-35 Ast (Sgot) 19 U/L 5-34 Total Bilirubin 0.4 mg/dL 0.2-1.3 GFR Non- >60 ml/min/1.73m^ >=60 GFR >60 ml/min/1.73m^ >=60 Laboratory test finding 01/01/2019 [facility](a) TSH 1.02 mIU/L 0.50-6.00 Vitamin D25 44 30-100 CBC Electronic (Fma New) 01/01/2019 [facility] WBC 7.27 4.0-10.0 (607)- - RBC 4.31 3.93-6.0 Hemoglobin (Fma/CMC/CTX) 13.1 g/dL 12.0-17.0 Hematocrit (Fma/CMC/CTX) 40.6 % 35.0-50.0 Mean Corpuscular Vol 94.2 fL 80-95 Mean Corpuscular Hemoglobin 30.4 pg 25.6-32.2 Mean Corpuscular Hemo Concen 32.3 g/dL 32.2-36.0 Platelets 299 10^3/ul 163-400 RDW-CV 14.9 High 11.6-14.4 Mean Platelet Volume 9.3 fL 8.0-12.4 Absolute Neutrophils BLD 4.48 1.56-6.13 Absolute Lymphocytes 1.82 1.18-3.74 Absolute Monocytes BLD Auto 0.71 0.24-0.82 Absolute Eos Blood 0.18 0.04-0.54 Absolute Basophils 0.07 0.01-0.08 Neutrophil % 61.6 % 34.0-70.0 Lymph% 25.0 % 20.0-52.0 Monocytes % 9.8 % 5.0-12.0 Eos % 2.5 % 0.7-7.0 Basophil% 1.0 % 0-1.2 Ict-Hemoccult 10/01/2018 [facility] Ict Hemoccult (1) 09/18/18 Neg. (MCR)Fma Screeni (607)- - Ict Hemoccult-(2) 09/19/18 Neg. Ict-Hemoccult (3) 09/20/18 Pos. CBC Electronic a 09/21/2018 [facility](a) WBC 6.5 x10^3/UL 4.0- 10.0 RBC 4.15 x10^6/UL 3.93-6.00 HGB 12.3 g/dL 12.0-17.0 HCT 39 % 35-50 MCV 94.9 fL 80.0-95.0 MCH 29.6 pg 25.6-32.2 MCHC 32.2 g/dL 32.2-36.0 RDW-CV 13.3 % 11.6-14.4 PLT 348 x10^3/UL 163-400 MPV 10.2 fL 9.4-12.4 Rigoberto# 3.10 x10^3/UL 1.56-6.13 Lymph# 2.48 x10^3/UL 1.18-3.74 Nueces# 0.67 x10^3/UL 0.24-0.82 Eos # 0.2 x10^3/UL 0.0-0.5 Baso # 0.07 x10^3/UL 0.01-0.08 Rigoberto% 47.5 % 34.0-70.0 Lymph % 38.1 % 20.0-52.0 [place]% 10.3 % 5.0-12.0 Eos% 2.8 % 0.7-7.0 Baso% 1.1 % 0.1-1.2 Comprehensive Metabolic 09/21/2018 [facility](fma) Sodium 140 mEq/L 134-149 Prof Potassium 5.0 mEq/L 3.6-5.5 Chloride 102 mEq/L 94-112 Carbon Dioxide 27 mEq/L 21-32 Glucose 108 mg/dL High 70-105 6 BUN 14 mg/dL 6-26 Creatinine 0.6 mg/dL 0.6-1.4 BUN/Creat Ratio 23.3 CALC 8.0-36.0 Calcium 9.4 mg/dL 8.6-10.2 Total Protein 7.0 g/dL 6.4-8.3 Albumin 4.5 g/dL 3.8-5.5 Globulin 2.5 g/dL 2.0-4.8 A/G Ratio 1.8 CALC 0.6-2.3 Alk. Phosphatase 91 U/L 30-110 Alt (SGPT) 23 U/L 7-35 Ast (Sgot) 20 U/L 5-34 Total Bilirubin 0.3 mg/dL 0.2-1.3 GFR Non- >60 ml/min/1.73m^ >=60 GFR >60 ml/min/1.73m^ >=60 1 AA 01/15 2 Standard intensity warfarin therapeutic range: 2.0-3.0 High intensity warfarin therapeutic range: 2.5-3.5 3 AA 01/15 4 *Ascorbic acid is present which may interfere with detection of blood. 5 SEE RESULT BELOW Name: LISSETTDARLING A : [address]: Darlin Guerrero MD Acct: [id number] Unit: [id number] AGE: 68 Location: [facility] Re01/02/19 SEX: F Status: REG REF SPEC: [id number] HUNTER: 01/02/19-[address]: Darlin Guerrero MD REQ: [id number] RECD: 01/02/19353 STATUS: [facility] DR: Ishan Dumont MD _ SOURCE: URINE SPDESC: ORDERED: Urine Culture COMMENTS: ROSALINDA 01/15 QUERIES: Urine Source: Clean Catch Procedure Result Reported Site Urine Culture Final 01/04/19- 0826 ML Organism 1 ESBL ESCHERICHIA COLI [place] Count >100,000 (Many) CFU/ML Organism 2 NORMAL SAFIA [place] Count 50-75,000 (Many) CFU/ML This isolate is an Extended Spectrum Beta-Lactamase Lighting Technician (ESBL) strain, and as such is considered [...] CONTINUED ON NEXT PAGE DEPARTMENT OF PATHOLOGY, [address] [place] [address] Ankit Jacobson M.D. Director [facility] # [id number] Patient: DARLING MCLEAN [id number] (Continued) Specimen: [id number] Collected: 01/02/19-1499 Received: 01/02/19-1547 (Continued) Procedure Result Reported Site Urine Culture Final (continued) Contact the Microbiology Department for any additional antibiotic reporting. * ML - Main Lab . END OF REPORT DEPARTMENT OF PATHOLOGY, [address] [place] [address] Ankit Jacobson M.D. Director [facility] # [id number] RESULTS VERIFIED BY REPEAT ANALYSIS Procedures Date Code Description Status 01/17/2019 [id number] Mammogram Completed 11/27/2017 [id number] Mammogram Completed 11/21/2017 [id number] Bone Mineral Density Test Completed 07/05/2016 [id number] Mammogram Completed 05/08/2015 [id number] Mammogram Completed 12/02/2014 [id number] Colonoscopy Completed 02/25/2014 [id number] Mammogram Completed 03/05/2012 [id number] Mammogram Completed 03/03/2011 [id number] Mammogram Completed 07/09/2009 [id number] Mammogram Completed 03/14/2008 [id number] Mammogram Completed 12/21/2006 [id number] Mammogram Completed 12/06/2005 [id number] Mammogram Completed Medical Devices Description No Information Available Encounters Type Date Location Provider Dx Diagnosis Office Visit 01/18/2019 [facility] Ishan Petersen A69.20 Lyme disease, 3:20p Nat Dumont unspecified Office Visit 01/01/2019 [facility] Office Ishan Petersen M25.551 Pain in right hip 2:20p Nat Dumont K62.5 Hemorrhage of anus and rectum F32.89 Other specified depressive episodes M85.89 Oth disrd of bone density and structure, multiple sites Z01.818 Encounter for other preprocedural examination Assessments Date Code Description Provider 03/19/2019 M15.0 Primary generalized (osteo)arthritis Ishan Dumont M.D. 03/19/2019 Z23 Encounter for immunization Ishan Dumont M.D. 03/19/2019 M85.89 Other specified disorders of bone density Ishan Dumont M.D. and structure, multiple sites 03/19/2019 F32.89 Other specified depressive episodes Ishan Dumont M.D. 01/18/2019 A69.20 Lyme disease, unspecified Ishan Dumont M.D. 01/10/2019 K62.5 Hemorrhage of anus and rectum Ishan Dumont M.D. 01/01/2019 M25.551 Pain in right hip Ishan Dumont M.D. 01/01/2019 K62.5 Hemorrhage of anus and rectum Ishan Dumont M.D. 01/01/2019 F32.89 Other specified depressive episodes Ishan Dumont M.D. 01/01/2019 M85.89 Other specified disorders of bone density Ishan Dumont M.D. and structure, mul 01/01/2019 Z01.818 Encounter for other preprocedural Ishan Dumont M.D. examination 10/01/2018 K29.01 Acute gastritis with bleeding Ishan Dumont M.D. 09/21/2018 K29.01 Acute gastritis with bleeding Ishan Dumont M.D. Plan of Treatment 03/19/2019 - Ishan Dumont M.D.M15.0 Primary generalized (osteo) arthritisComments:I feel the patient is medically cleared for the planned right hip surgery and replacement by Dr. Jacob23 Encounter for immunizationFollow up: Followup:. (Follow up)M85.89 Other specified disorders of bone density and structure, multiple sitesComments:Patient to continue risedronate will repeat a DEXA scan in 2019 for cmbvbrmqJ21.89 Other specified depressive episodesComments :Doing well on present dose of Lexapro will continueAllNew Medication: Ranitidine HCL 150 mg - take 1 tablet by mouth qd - bidComments:Medication Management Patient Understands medications she's taking? Yes No Are there Barriers to Adherence? Yes No Has the patient been asked about herbal supplements and therapies, and OTC meds? Yes NoFollow up:return for follow up in 6 months Functional Status Description No Information Available Mental Status Description No Information Available Referrals Description No Information Available
[2019-03-28] MEDS ORDERED: KETAMINE HCL* 50 MG/ML 10 ML VIAL ONE (13:56)
[2019-03-28] MEDS ORDERED: Propofol* 10 MG/ML 20 ML BTL ONE (14:06)
[2019-03-28] MEDS ORDERED: Phenylephrine 40 MCG/ML SYRINGE ONE (14:06)
[2019-03-28] MEDS ORDERED: Ketorolac INJ* 30 MG/ML 1 ML VIAL ONE (14:06)
[2019-03-28] MEDS ORDERED: Ondansetron INJ* 2 MG/ML VIAL ONE (14:06)
[2019-03-28] MEDS ORDERED: EPHEDrine (Pressors)* 50 MG/ML VIAL ONE (14:06)
[2019-03-28] MEDS ORDERED: Lidocaine 2% PF * 5 ML VIAL ONE (14:06)
[2019-03-28] MEDS ORDERED: Phenylephrine 10 MG/ML VIAL* 1 ML VIAL ONE (14:21)
[2019-03-28] MEDS ORDERED: Glycopyrrolate IV* 0.2 MG/ML 1 ML VIAL ONE (14:27)
[2019-03-28] MEDS ORDERED: Midazolam* 1 MG/ML 2 ML VIAL (2 MG) ONE (15:06)
[2019-03-28] MEDS ORDERED: diPHENhydraMINE PO* 25 MG PO PRN (16:11)
[2019-03-28] MEDS ORDERED: Magnesium Hydroxide LIQ* 30 ML UDC PO PRN (16:11)
[2019-03-28] MEDS ORDERED: Ondansetron ODT TAB* 4 MG PO PRN (16:11)
[2019-03-28] MEDS ORDERED: oxyCODONE/Acetamin 5/325 MG* TAB PO PRN (16:11)
[2019-03-28] MEDS ORDERED: Morphine INJ* 2 MG/ML 1 ML SYRINGE (TWO MG - NEW SYRINGE VERSION) IV PRN (16:11)
[2019-03-28] MEDS ORDERED: Ondansetron INJ* 2 MG/ML VIAL IV PRN (16:11)
[2019-03-28] MEDS ORDERED: Acetaminophen TAB* 325 MG PO PRN ×2 (16:11→16:12)
[2019-03-28] MEDS ORDERED: diPHENhydraMINE IV* 50 MG/ML 1 ml VIAL (BENADRYL) IV PRN (16:11)
[2019-03-28] MEDS ORDERED: oxyCODONE TAB* 5 MG TAB PO PRN (16:12)
[2019-03-28] MEDS ORDERED: DiMENhydriNATE IV* 50 MG/ML VIAL IV PUSH PRN (16:12)
[2019-03-28] MEDS ORDERED: Naloxone* 0.4 MG/ML 1 ML VIAL IV PRN (16:12)
--- NOTE | 2019-03-28 16:36 | OP ---
Operative Report - Blank - Operative Report Date of Operation: 03/28/19 Note: DARLING GALEANA 1950 Date Of Surgery: 03/28/19 Darlin Guerrero MD [place] Specialist: Tigre VERAS did help throughout the procedure with preparation of the hip, wound retraction, manipulation of the hip, and wound closure. Anesthesiologist: Arash Mae MD Anesthesia Type: Spinal Preoperative Diagnosis: Right severe degenerative osteoarthritis of the hip Postoperative Diagnosis: As above Procedure Performed: Right Total Hip Arthroplasty Complications: None Specimen: Femoral head and acetabular reamings sent to pathology. Hardware used: This is uncemented Avilla total hip arthroplasty hardware for the femur a size 3 accolade II with 127 neck femoral component, for the acetabulum a size 48 D trident II tritanium cluster hole shell with a 20 mm screw, for the insert a size 32D trident X3 polyethylene insert, and for the femoral head a size 32 + 4 ceramic biolox V40 femoral head. Brief history/Indication: DARLING GALEANA was known in clinic and had a history of severe right hip pain. She failed conservative treatment with anti- inflammatories, pain pills, intra-articular injections and physical therapy. She elected to undergo right total hip arthroplasty due to continued pain and decreased quality of life. Radiographs showed severe end stage osteoarthritis of the hip with bone on bone contact. Informed consent was obtained from the patient. She understood the risks of surgery included but were not limited to: bleeding, infection, damage to nearby structures, intraoperative fracture, nerve palsy, failure of the hardware, early loosening, stiffness or loss of motion, dislocation, leg length discrepancy, anesthesia complications, stroke, heart attack, blood clot and . She wished to proceed. Intra-Operative findings: Intraoperatively the patient was noted to have severe loss of cartilage of the acetabulum and femoral head. Description of the Procedure: DARLING GALEANA was identified in the preanesthesia unit. Her right hip was marked as the correct operative side. Informed consent was signed and placed in the chart. The patient was taken to the operating room and placed under anesthesia without complication. A miller catheter was placed. The patient was placed on the peg board with all bony prominences well padded. The right lower extremity was prepped and draped in the usual sterile fashion. Preoperative time-out was made to correctly identify the patient, side and site. Appropriate intraoperative antibiotics were given within one hour of incision. A standard posterior incision was made and carried sharply down to the lateral fascia. A new 10 blade was used to make an incision in the fascia in line with the skin incision. A charnley retractor was placed. The piriformis and conjoined tendons were identified and elevated off the posterolateral femur using electrocautery. These were tagged with number 5 Ethibond. Next electrocautery was used to make a posterolateral capsular flap and this was tagged with number 5 Ethibonds. The hip was carefully dislocated. Lesser trochanter to the center of the femoral head was measured at 55 mm. The oscillating saw was used to make the femoral neck cut. The femoral head was carefully removed. The femur was retracted anteriorly and the acetabular retractors were placed. Long-handled knife was used to sharply remove any remaining labrum from the acetabular rim. The acetabulum was sequentially reamed up to a size 48. A bleeding subchondral bone bed was obtained. A trial liner was placed and had excellent fit and stability. A 48D trident II tritanium cluster hole shell with a 20 mm screw was placed and had excellent stability with appropriate anteversion and abduction angle. A size 32D polyethylene liner was impacted into the acetabular shell. The liner was checked for stability and was stable. Next attention was turned to preparation of the femoral canal. A canal finder was used to enter the proximal femur. The femoral canal was sequentially broached up to a size 3 femoral broach trial. A trial neck and 32 + 4 trial femoral head was chosen. Lesser trochanter to center of the femoral head measurement was satisfactory. The hip was reduced and taken through a range of motion. The hip was stable in all positions with good soft tissue tension and appropriate leg lengths. The hip was dislocated and all trials were removed. The final implant chosen was a accolade II size 3 with 127 neck angle. This stem was impacted into the femoral canal without difficulty. The stem was stable with appropriate anteversion. The femoral head chosen was a 32 + 4 ceramic head. The head was impacted onto the femoral neck without difficulty. The final lesser trochanter to center of the femoral head measurement was satisfactory. The hip was reduced and taken through a range of motion. The hip was stable in all positions with good soft tissue tension and appropriate leg lengths. The hip was copiously irrigated with sterile saline. The previously tagged capsule and tendons were repaired to the posterolateral femur through two trochanteric drill holes. The lateral fascia layer was closed using number 1 vicryls. The rest of the incision was closed in a layered fashion using 0 and 2-0 vicryls. The skin was closed using 3-0 monocryl suture and Dermabond. Sterile adaptic, 4x4s and paper tape was used to cover the incision. The patients anesthesia was reversed without difficulty. She was taken to the PACU in stable condition. Intended weight-bearing will be as tolerated with posterior hip precautions.
[2019-03-28] MEDS: Lactated Ringers 1000 ML Bag* 1,000 ML IV SCH (18:02)
--- NOTE | 2019-03-28 18:02 | PN ---
Progress Note - Progress Note Date of Service: 03/28/19 - Post-op Note: Patient is resting in bed comfortably. She denies SOB, CP, or dizziness. She has not been OOB yet, but is able to dorsi/plantar flex her ankles, with intact sensation and 2+ DP pulses. Patient is encouraged to ask for pain medication if needed. Continue activity as tolerated. We will monitor and appreciate medicine' s assistant corporation counsel.
[2019-03-28] MEDS: oxyCODONE/Acetamin 5/325 MG* TAB PO PRN ×2 (18:33→22:51)
[2019-03-28] MEDS: oxyCODONE TAB* 5 MG TAB PO PRN (20:04)
[2019-03-28] MEDS: Cyclobenzaprine TAB* 10 MG PO PRN (22:15)
[2019-03-28] MEDS: Docusate CAP* 100 MG PO SCH (22:15)
[2019-03-28] MEDS: Magnesium Hydroxide LIQ* 30 ML UDC PO SCH (22:16)
[2019-03-28] MEDS: ceFAZolin 1 GM ADVAN(*) 1 GM in NS 0.9% 50 ML* 50 ML IVPB SCH (22:17)
[2019-03-28] MEDS: Ketorolac INJ* 30 MG/ML 1 ML VIAL IV PRN (22:52)
[2019-03-29] MEDS: oxyCODONE TAB* 5 MG TAB PO PRN ×3 (02:38→13:14)
[2019-03-29] MEDS: Lactated Ringers 1000 ML Bag* 1,000 ML IV SCH (03:45)
[2019-03-29] MEDS: oxyCODONE/Acetamin 5/325 MG* TAB PO PRN ×3 (05:50→19:36)
[2019-03-29] MEDS: ceFAZolin 1 GM ADVAN(*) 1 GM in NS 0.9% 50 ML* 50 ML IVPB SCH ×2 (05:51→13:15)
[2019-03-29 06:10] LABS: Hematocrit 30 % (35-47); Hemoglobin 10.1 g/dL (12.0-16.0); Mean Platelet Volume 8.4 fL (7.4-10.4); Platelet Count 209 10^3/uL (150-450)
[2019-03-29 06:26] LABS: BUN/Creatinine Ratio 18.6 (8-20); Calcium 8.4 mg/dL (8.6-10.3); EGFR African American 123.4 (>60); Potassium 4.4 mmol/L (3.5-5.0)
[2019-03-29] MEDS: Ketorolac INJ* 30 MG/ML 1 ML VIAL IV PRN (06:53)
[2019-03-29] MEDS: Magnesium Hydroxide LIQ* 30 ML UDC PO SCH ×2 (08:46→19:36)
[2019-03-29] MEDS: Escitalopram * 10 MG TAB PO SCH (08:46)
[2019-03-29] MEDS: Cyclobenzaprine TAB* 10 MG PO PRN (08:46)
[2019-03-29] MEDS: Vitamin THERAPEUTIC TAB PO SCH (08:47)
[2019-03-29] MEDS: Docusate CAP* 100 MG PO SCH ×2 (08:47→19:36)
[2019-03-29] MEDS: Apixaban* 2.5 MG TAB PO SCH ×2 (08:47→19:36)
--- NOTE | 2019-03-29 13:01 | PN ---
Progress Note - Progress Note Date of Service: 03/29/19 SOAP: Subjective: Pt seen sitting comfortably in chair. No complaint of pain. no other issues. Denies CP, SOB, F/C. Vital Signs: Temp Pulse Resp BP Pulse Ox 97.8 F 79 16 101/51 88 03/29/19 11:57 03/29/19 11:57 03/29/19 11:57 03/29/19 11:57 03/29/19 11:57 Laboratory Last Values Hgb 10.1 g/dL (12.0-16.0) L 03/29/19 05:39 Hct 30 % (35-47) L 03/29/19 05:39 Plt Count 209 10^3/uL (150-450) 03/29/19 05:39 MPV 8.4 fL (7.4-10.4) 03/29/19 05:39 Sodium 136 mmol/L (135-145) 03/29/19 05:39 Potassium 4.4 mmol/L (3.5-5.0) 03/29/19 05:39 Chloride 103 mmol/L (101-111) 03/29/19 05:39 Carbon Dioxide 30 mmol/L (22-32) 03/29/19 05:39 Anion Gap 3 mmol/L (2-11) 03/29/19 05:39 BUN 11 mg/dL (6-24) 03/29/19 05:39 Creatinine 0.59 mg/dL (0.51-0.95) 03/29/19 05:39 Est GFR ( Amer) 123.4 (>60) 03/29/19 05:39 Est GFR (Non-Af Amer) 102.0 (>60) 03/29/19 05:39 BUN/Creatinine Ratio 18.6 (8-20) 03/29/19 05:39 Glucose 126 mg/dL (70-100) H 03/29/19 05:39 Calcium 8.4 mg/dL (8.6-10.3) L 03/29/19 05:39 Objective: A&O x3, NAD Dressing C/D/I, Calves soft and nontender, No edema, NVI distally Assessment: 68 yo female s/p right TAWANA POD #1 Plan: OOB, PT/OT WBAT Pain control DVT prophylaxis - Eliquis 2.5 bid November D/C home 03/30
[2019-03-29] MEDS ORDERED: Iohexol 350* (CONTRAST) 500 ML MDV IV ONE (22:12)
[2019-03-29 23:28] LABS: ABS Eosinophils 0.1 10^3/ul (0-0.6); ABS Lymphocytes 1.3 10^3/ul (1.0-4.8); ABS Monocytes 0.6 10^3/ul (0-0.8); ABS Neutrophils 6.2 10^3/ul (1.5-7.7); Eosinophil % 1.7 %; Hematocrit 30 % (35-47); Hemoglobin 10.1 g/dL (12.0-16.0); Lymphocyte % 15.3 %; Mean Corpuscular HGB Conc 34 g/dL (31-36); Mean Corpuscular Hemoglobin 32 pg (27-31); Mean Corpuscular Volume 95 fL (80-97); Mean Platelet Volume 8.3 fL (7.4-10.4); Platelet Count 194 10^3/uL (150-450); Red Cell Distribution Width 13 % (10-15); White Blood Count 8.3 10^3/uL (3.5-10.8)
[2019-03-29] MEDS ORDERED: Albuterol/Ipratropium NEB.SOL* Albuterol 2.5 MG/Ipratropium 0.5 MG 3 ML INH SCH (23:45)
[2019-03-29 23:46] LABS: Albumin 3.3 g/dL (3.2-5.2); Albumin/Globulin Ratio 1.2 (1-3); BUN/Creatinine Ratio 18.8 (8-20); EGFR African American 112.3 (>60); EGFR Non-African American 92.8 (>60); Globulin 2.7 g/dL (2-4); Potassium 3.9 mmol/L (3.5-5.0); Total Bilirubin 0.6 mg/dL (0.2-1.0)
[2019-03-30] MEDS ORDERED: Albuterol/Ipratropium NEB.SOL* Albuterol 2.5 MG/Ipratropium 0.5 MG 3 ML INH PRN (00:05)
[2019-03-30] MEDS: methylPREDNISolone SOD 40 MG* 1 ML VIAL IV SCH ×2 (00:50→12:13)
[2019-03-30] MEDS ORDERED: Levofloxacin 750 MG IVPREMIX(* 750 MG/150 ML BAG IVPB SCH (01:00)
[2019-03-30] MEDS: oxyCODONE/Acetamin 5/325 MG* TAB PO PRN ×4 (01:07→20:33)
--- NOTE | 2019-03-30 02:41 | CONS ---
CC: Dr. Darlin Guerrero; Dr. Ishan Dumont CONSULTATION REPORT: DATE OF CONSULT: 03/29/19 REFERRING PHYSICIAN: Dr. Darlin Guerrero. CONSULTING PHYSICIAN: Dr. Jaswinder Cruz. REASON FOR CONSULTATION: Hypoxia. HISTORY OF PRESENT ILLNESS: This is a 68-year-old female with past medical history of arthritis, dep ression, osteopenia, gastroesophageal reflux disease, recently underwent right total hip replacement on 03/28/19, was doing well postoperatively until on 03/29/19, the patient was noted to be hypoxic th roughout the day, so Medicine was consulted to evaluate the patient. The patient herself did not hav e any symptoms of shortness of breath. She stated that she was just feeling sleepy all day and was h aving some hiccuping problems but did not have any chest pain, any palpitations, any shortness of violet ath. She has been walking around without any difficulty. She denies any leg swelling, any abdominal pain, nausea, vomiting, or diarrhea. PAST MEDICAL HISTORY: As mentioned, arthritis, depression, gastroesophageal reflux disease, osteopen ia. PAST SURGICAL HISTORY: She has had a tonsillectomy, vaginal cyst removal, C- section, hysterectomy, had a left total hip arthroplasty already in 2019 and right total hip replacement yesterday. MEDICATIONS: Current active medications include: 1. Tylenol. 2. Eliquis. 3. Bisacodyl. 4. Flexeril. 5. Benadryl. 6. Colace. 7. Lexapro. 8. Lactulose. 9. Milk of magnesia. 10. Morphine. 11. Multivitamin. 12. Zofran. 13. Percocet. ALLERGIES: No known drug allergies. FAMILY HISTORY: Positive for esophageal cancer and coronary artery disease. SOCIAL HISTORY: The patient is a retired teacher. Lives at home with her spouse. Had previously smo ked, roughly 10 pack year history but she quit again 3 years ago. She denies any recreational drug us e but does drink about 3 glasses of wine on a daily basis. REVIEW OF SYSTEMS: A 14-point review of systems did not reveal any new information other than what i s stated in the HPI. PHYSICAL EXAM: Vital Signs: The patient was noted to be hypoxic to as low as 76% and the hypoxia im proved once the patient was placed on 2 L nasal cannula to about 92% saturation. Heart rate, the pat ient was noted to be tachycardic to 107 and she was minimally tachypneic up to 20. Temperature was n oted to be 98.6. In general, the patient is awake, alert, oriented x3, did not appear to be in any a cute respiratory distress. Head and Neck Examination: Atraumatic, normocephalic. Bilateral pupils a re reactive. Oral mucosa was moist. Neck: Supple. No jugular venous distention. Heart Examinatio n: S1, S2. Regular rate and rhythm. Lungs: The patient had otherwise clear to auscultation bilater ally. No evidence of any wheezing. Abdomen is soft, nontender, nondistended. Extremities: No cyan osis, clubbing, or edema. DIAGNOSTIC STUDIES/LAB DATA: Labs: CBC was within normal limits except for some mild anemia with he moglobin of 10.1, hematocrit of 30. ABG shows hypoxia with PaO2 of 54 and oxygen saturation of 88%. Basic metabolic panel was unremarkable. CTA of the chest showed no acute pulmonary embolism, patchy ground-glass opacities. This may represen t bronchiolitis either due to an infectious versus inflammatory process. Large hiatal hernia with fl uid distending into the thoracic esophagus was also noted. IMPRESSION: This is a 68-year-old female, status post right total hip arthroplasty, was noted to be hypoxic which resolved with nasal cannula oxygen, noted to have some ground-glass changes, possible i nfectious versus inflammatory. ASSESSMENT AND PLAN: 1. Hypoxia related to possible pneumonia. For now, we will start the patient on Levaquin. We will also start the patient on some steroids to cover for any inflammatory changes causing the ground-glas s opacities and along with some DuoNebs and give oxygen supplementation as needed for her hypoxia. C ontinue the rest of the care as per primary. 2. DVT prophylaxis: The patient already on Eliquis per primary. [id number]/[facility] #: [id number]
[2019-03-30 05:51] LABS: Hematocrit 31 % (35-47); Hemoglobin 10.4 g/dL (12.0-16.0); Mean Platelet Volume 8.4 fL (7.4-10.4); Platelet Count 201 10^3/uL (150-450)
[2019-03-30] MEDS: Magnesium Hydroxide LIQ* 30 ML UDC PO SCH (07:59)
[2019-03-30] MEDS: Docusate CAP* 100 MG PO SCH ×2 (07:59→20:35)
[2019-03-30] MEDS: Escitalopram * 10 MG TAB PO SCH (08:00)
[2019-03-30] MEDS: Vitamin THERAPEUTIC TAB PO SCH (08:00)
[2019-03-30] MEDS: Apixaban* 2.5 MG TAB PO SCH ×2 (08:00→20:33)
--- NOTE | 2019-03-30 09:20 | PN ---
Subjective Date of Service: 03/30/19 Interval History: Ms. Mclean reports that she is feeling great and is eager for discharge. She reports that prior to coming in to the hospital she was in her normal state of health and denies cough, SOB, chest pain or fever. She continues to deny these symptoms. She notes recent treatment for lyme with two week course of doxycycline. She has no known exposures to pulmonary irritants, retired teacher. Denies smoking. Objective Active Medications: Acetaminophen (Tylenol Tab*) 650 mg PO Q8H PRN Albuterol/Ipratropium (Duoneb (Albuterol 2.5 Mg/Ipratropium 0.5 Mg)) 1 neb INH Q6H PRN Apixaban (Eliquis*) 2.5 mg PO BID SADIA Bisacodyl (Dulcolax Supp*) 10 mg WV DAILY PRN Cyclobenzaprine HCl (Flexeril Tab*) 10 mg PO Q6H PRN Diphenhydramine HCl (Benadryl Iv*) 25 mg IV Q6H PRN Diphenhydramine HCl (Benadryl Po*) 25 mg PO Q6H PRN Docusate Sodium (Colace Cap*) 100 mg PO BID SADIA Escitalopram Oxalate (Lexapro *) 10 mg PO QAM SADIA Lactated Ringer's (Lactated Ringers 1000 Ml Bag*) 1,000 mls @ 100 mls/hr IV PER RATE SADIA Levofloxacin/Dextrose (Levaquin 750 Mg Ivpremix(*)) 750 mg in 150 mls @ 100 mls /hr IVPB Q24H SADIA; Protocol Lactulose (Lactulose*) 30 ml PO BID PRN Magnesium Hydroxide (Milk Of Magnesia Liq*) 30 ml PO BID SADIA Magnesium Hydroxide (Milk Of Magnesia Liq*) 30 ml PO Q6H PRN Methylprednisolone Sodium Succinate (Solu-Medrol 40 Mg) 40 mg IV Q12H SADIA Morphine Sulfate (Morphine Inj (Syringe))*) 2 mg IV Q4H PRN Multivitamins (Theragran Tab*) 1 tab PO DAILY SADIA Ondansetron HCl (Zofran Inj*) 4 mg IV Q6H PRN Ondansetron HCl (Zofran Odt Tab*) 4 mg PO Q6H PRN Oxycodone HCl (Roxycodone Tab*) 10 mg PO Q4H PRN Oxycodone/Acetaminophen (Percocet 5/325 Tab*) 1 tab PO Q4H PRN Oxycodone/Acetaminophen (Percocet 5/325 Tab*) 2 tab PO Q4H PRN Vital Signs: Temp Pulse Resp BP Pulse Ox 97.7 F 78 20 104/56 97 03/30/19 07:24 03/30/19 07:24 03/30/19 08:00 03/30/19 07:24 03/30/19 07:24 Oxygen Devices in Use Now: None Appearance: Female sitting up in chair in NAD Eyes: No Scleral Icterus Ears/Nose/Mouth/Throat: Mucous Membranes Moist Neck: Trachea Midline Respiratory: Symmetrical Chest Expansion and Respiratory Effort, Clear to Auscultation Cardiovascular: NL Sounds; No Murmurs; No JVD, No Edema Abdominal: NL Sounds; No Tenderness; No Distention Lymphatic: No Cervical Adenopathy Extremities: No Edema Skin: No Rash or Ulcers Neurological: Alert and Oriented x 3, NL Muscle Strength and Tone Nutrition: Taking PO's Result Diagrams: 03/30/19 05:23 03/29/19 23:19 Assess/Plan/Problems-Billing Assessment: Ms. Mclean is a 68 yo F with a PMH of who was admitted on 03/28/19 for a right total hip replacement, Hospital Medicine has been consulted regarding hypoxia with finding of ground glass opacities with concern for infection vs inflammation (acute vs chronic?). - Patient Problems (1) History of total left hip arthroplasty Comment: - Management per ortho - Pain meds prn with bowel regimen - PT/OT - Hgb stable at 10.4 (2) Hypoxia Comment: - SpO2 88% on room air yesterday bu > 90% today - Ground glass opacities noted on CTA chest (no PE). ? acute vs chronic, infection vs inflammation. - Switch from levaquin to doxycycline. Decrease steroids to prednisone 40mg x 3 days - Recommend close follow up outpatient with repeat CT and pulmonology appt in 6 weeks. (3) Depression Comment: - Continue lexapro. (4) DVT prophylaxis Comment: - Apixiban per ortho. (5) Full code status Comment: Status and Disposition: Inpatient with disposition per ortho
--- NOTE | 2019-03-30 09:36 | PN ---
Progress Note - Progress Note Date of Service: 03/30/19 SOAP: Subjective: Pt. is alert, reports minimal hip pain, denies cp/sob. Objective: Vital Signs: Temp Pulse Resp BP Pulse Ox 97.7 F 78 20 104/56 97 03/30/19 07:24 03/30/19 07:24 03/30/19 08:00 03/30/19 07:24 03/30/19 07:24 Laboratory Results - last 24 hr 03/29/19 03/29/19 03/29/19 22:45 23:19 23:19 WBC 8.3 RBC 3.10 L Hgb 10.1 L Hct 30 L MCV 95 MCH 32 H MCHC 34 RDW 13 Plt Count 194 MPV 8.3 Neut % (Auto) 75.4 Lymph % (Auto) 15.3 [place] % (Auto) 7.2 Eos % (Auto) 1.7 Baso % (Auto) 0.4 Absolute Neuts (auto) 6.2 Absolute Lymphs (auto) 1.3 Absolute Monos (auto) 0.6 Absolute Eos (auto) 0.1 Absolute Basos (auto) 0.0 Absolute Nucleated RBC 0.0 Nucleated RBC % 0.0 ABG pH 7.47 H ABG pCO2 44 ABG pO2 54 L* ABG HCO3 30.4 ABG O2 Saturation 88.7 L ABG Base Excess 7.4 H Sodium 131 L Potassium 3.9 Chloride 97 L Carbon Dioxide 30 Anion Gap 4 BUN 12 Creatinine 0.64 Est GFR ( Amer) 112.3 Est GFR (Non-Af Amer) 92.8 BUN/Creatinine Ratio 18.8 Glucose 130 H Calcium 8.0 L Total Bilirubin 0.60 AST 34 ALT 17 Alkaline Phosphatase 69 Total Protein 6.0 L Albumin 3.3 Globulin 2.7 Albumin/Globulin Ratio 1.2 03/30/19 05:23 WBC RBC Hgb 10.4 L Hct 31 L MCV MCH MCHC RDW Plt Count 201 MPV 8.4 Neut % (Auto) Lymph % (Auto) [place] % (Auto) Eos % (Auto) Baso % (Auto) Absolute Neuts (auto) Absolute Lymphs (auto) Absolute Monos (auto) Absolute Eos (auto) Absolute Basos (auto) Absolute Nucleated RBC Nucleated RBC % ABG pH ABG pCO2 ABG pO2 ABG HCO3 ABG O2 Saturation ABG Base Excess Sodium Potassium Chloride Carbon Dioxide Anion Gap BUN Creatinine Est GFR ( Amer) Est GFR (Non-Af Amer) BUN/Creatinine Ratio Glucose Calcium Total Bilirubin AST ALT Alkaline Phosphatase Total Protein Albumin Globulin Albumin/Globulin Ratio RLE - dressing changed, inc c/d/i. distally nvi. thigh soft and compressible. Chest - unlabored breathing. room air. Assessment: 68 yo F pod 2 s/p RTHA Plan: post op desats - CTA negative for PE, likely PNA antiobiotics and respiratory care o2 sats improved today cont eliquis cont pt-wbat and post hip precautions plan d/c to home tomorrow if hospitalist agrees.
[2019-03-30 09:49] LABS: C Reactive Protein 174.85 mg/L (<8.01)
[2019-03-30] MEDS ORDERED: Bisacodyl SUPP* 10 MG SUPP PR PRN (16:12)
[2019-03-30] MEDS: DOXYcycline CAP(*) 100 MG PO SCH (20:33)
[2019-03-31] MEDS: oxyCODONE/Acetamin 5/325 MG* TAB PO PRN (02:51)
[2019-03-31 07:56] VITALS: BP 117/62
[2019-03-31 07:59] LABS: Hematocrit 26 % (35-47); Mean Platelet Volume 8.4 fL (7.4-10.4); Platelet Count 207 10^3/uL (150-450)
[2019-03-31] MEDS: Apixaban* 2.5 MG TAB PO SCH (08:18)
[2019-03-31] MEDS: Docusate CAP* 100 MG PO SCH (08:18)
[2019-03-31] MEDS: Escitalopram * 10 MG TAB PO SCH (08:18)
[2019-03-31] MEDS: DOXYcycline CAP(*) 100 MG PO SCH (08:18)
[2019-03-31] MEDS: Vitamin THERAPEUTIC TAB PO SCH (08:18)
[2019-03-31] MEDS ORDERED: predniSONE TAB* 20 MG PO ONE (09:00)
--- NOTE | 2019-03-31 10:04 | DS ---
Orthopedic Discharge Summary - Discharge Summary Date of Admission:03/28/19 Date of Discharge: 03/31/19 Date of Surgery: 03/28/19 Attending Orthopedic Provider: Dr. Guerrero Pre-operative Diagnosis: Right hip osteoarthritis Operative Procedure: Right total hip arthroplasty Disposition of Patient: Home Condition of Patient: Stable History: DARLING GALEANA is a 68 year old F with years of increasingly severe right pain. Patient has failed conservative management and has elected to undergo a Right total hip arthroplasty. Hospital Course: DARLING was admitted to [facility] on 03/28/19. Patient underwent a Right total hip arthroplasty without complication followed by a brief recovery in PACU and transfer to the Short Stay Surgical Unit in stable condition. Our hospitalist service, physical therapy and occupational therapy also participated in this patients care. Post-op day 1: patient was alert and in no acute distress. Dressing was clean, dry and intact. Operative extremity dorsiflexion and plantarflexion intact, sensation intact to light touch distally, DP2+. The patient's O2 saturation was noted to be in the 80s throughout the day, therefore a CTA was ordered which did not reveal a PE, but did show ground glass opacities. She was placed on 2L of O2 and IV Levaquin. Post-op day two: dressing was changed, incision was clean, dry and intact. Patient was still quite tired and still using IV Levaquin. POD 3 patient was feeling better, and had worked well with PT. She was switched to Doxycycline for discharge and was deemed to be medically and orthopedically stable for discharge. Physical therapy goals were met. Home Medications Medication Instructions Recorded Confirmed Type Escitalopram Oxalate [Lexapro 10 10 mg PO QAM 11/28/14 03/15/19 History mg] Multivitamin [Multiple Vitamins] 1 tab PO QAM 02/15/18 03/15/19 History Risedronate Sodium [Risedronate 150 mg PO MONTHLY #0 07/19/18 03/28/[address]] Acetaminophen TAB* [Tylenol TAB*] 975 mg PO ONCE PRN 01/02/19 03/15/19 History Vit C/E/Zn/Coppr/Lutein/Zeaxan 1 each PO QAM 01/02/19 03/15/19 History [Preservision Areds 2 Softgel] Lactobacillus Combo No.10 1 each PO QAM 03/15/19 03/15/19 History [Probiotic] Oxycodone HCl/Acetaminophen 1 tab PO Q4H PRN 03/28/19 03/28/19 History [Percocet 5-325 mg Tablet] raNITIdine HCl [Ranitidine HCl] 150 mg PO QAM 03/28/19 03/28/19 History Apixaban* [Eliquis*] 2.5 mg PO BID tab 03/31/19 Rx oxyCODONE/Acetamin 5/325 MG* 1 tab PO Q4H PRN tab 03/31/19 Rx [Percocet 5/325 TAB*] oxyCODONE/Acetamin 5/325 MG* 2 tab PO Q4H PRN tab 03/31/19 Rx [Percocet 5/325 TAB*] Discharge Instructions following Orthopedic Surgery: Activity: Weight Bearing as tolerated Continue physical therapy and occupational therapy exercises as shown Hip replacements: Continue Hip Precautions- do not cross legs or bend greater than 90 degrees/squat Wound care: OK to shower on post-op day 3, no bathing, swimming, or submerging wound. Use gentle soap, pat dry. Cover with gauze, ISAIAS wrap or tape. Visiting home nurse to do wound checks. Call Orthopedic office for: Increased drainage Redness Increased pain Fever Go to ER with shortness of breath or chest pain. Diet: Regular diet Increase fluids and fiber to prevent constipation. Continue to use stool softeners, call office if no bowel motion within 48 hours. Medications See Home Medication List in your packet for medications that you should take after discharge. All medications sent to [facility]'s pharmacy. DVT Prophylaxis: Eliquis Dosin.5 mg, 1 tab every 12 hours x 30 days Pain Control: Percocet Dosin/325 mg 1-2 tabs by mouth every 4-6 hours as needed for pain. Maximum of 10 tabs per day. Please note that Percocet contains Tylenol (acetaminophen). Maximum daily dose of Tylenol is 4000 mg from all sources. Antibiotics are required prior to any dental work. FOLLOW UP: Follow up with Dr. Guerrero within 10-14 days, call for appointment at [phone]. Please call our office with any questions or concerns ([phone])
--- NOTE | 2019-05-02 14:34 | HP ---
ADDENDUM: The chief complaint should state right hip pain instead of left as documented in the origi shaheed Zurita. ROSITA RUBI, EDA [id number]/[facility] #: [id number]
== END 2019-03-31 10:40 | disposition home or self-care (01) | DRG 470 ==
LOC: EDSTATUS 02-21 11:00 → AA 03-28 11:12 → SSU 03-28 17:20
PROVIDERS: ADMIT Orthopaedic Surgery Adult Reconstructive Orthopaedic Surgery; ATTEND Orthopaedic Surgery Adult Reconstructive Orthopaedic Surgery
PROC: 0SR904A Replacement of Right Hip Joint with Ceramic on Polyethylene Synthetic Substitute, Uncemented, Open Approach (ICD-10-PCS; principal; 2019-03-28 13:45)
DX: M16.11 Unilateral primary osteoarthritis, right hip (principal); R09.02 Hypoxemia; F32.9 Major depressive disorder, single episode, unspecified; K21.9 Gastro-esophageal reflux disease without esophagitis; Z96.642 Presence of left artificial hip joint; R39.15 Urgency of urination; M25.751 Osteophyte, right hip; R91.8 Other nonspecific abnormal finding of lung field; M85.88 Other specified disorders of bone density and structure, other site; Z87.891 Personal history of nicotine dependence; M15.0 Primary generalized (osteo)arthritis; G89.29 Other chronic pain; F41.9 Anxiety disorder, unspecified; Z90.710 Acquired absence of both cervix and uterus; Z82.49 Family history of ischemic heart disease and other diseases of the circulatory system; Z80.0 Family history of malignant neoplasm of digestive organs; Z72.89 Other problems related to lifestyle; Z87.440 Personal history of urinary (tract) infections; Z80.8 Family history of malignant neoplasm of other organs or systems; Z87.11 Personal history of peptic ulcer disease
CPT/HCPCS: 36415; 36600; 71275; 80048; 80053; 82803; 85014; 85018; 85025; 85049; 86140; 88304; 88311; A9270-GY; C1713; C1776; G8978-GP-CJ; G8979-GP-CI; J0690; J1885; J2250; J2270; J2405; J2704; J2920; J3010; J7512; Q9967